=== PATIENT | female | born 1950 | race Caucasian/White ===

== ENCOUNTER → 2016-07-12 | Outpatient (CLI) | payer OTHER, MEDICARE ==
--- NOTE | 2016-07-12 10:53 | ECHOF ---
Referral Reason:R07.89 chest pain MEASUREMENTS -------- HEIGHT: 182.9 cm WEIGHT: 122.5 kg BP: 153/73 RVIDd: 3.6 cm (< 3.3) IVSd: 1.2 cm (0.6 - 1.1) LVIDd: 5.4 cm (3.9 - 5.3) LVPWd: 1.2 cm (0.6 - 1.1) IVSs: 1.9 cm LVIDs: 3.6 cm LVPWs: 1.6 cm LA Diam: 3.7 cm (2.7 - 3.8) LAESV Index (A-L): 32.53 ml/m Ao Diam: 3.8 cm (2.0 - 3.7) AV Cusp: 2.5 cm (1.5 - 2.6) MV EXCURSION: 20.477 mm (> 18.000) MV EF SLOPE: 80 mm/s (70 - 150) EPSS: 1.2 cm MV E Fred: 0.94 m/s MV DecT: 254 ms MV A Fred: 0.82 m/s MV E/A Ratio: 1.15 RAP: 5.00 mmHg RVSP: 30.55 mmHg FINDINGS -------- Sinus rhythm. This was a technically good study. The left ventricular size is normal. There is borderline concentric left ventricular hypertrophy. Overall left ventricular systolic function is normal with, an EF between 55 - 60 %. The right ventricle is mildly enlarged. LA is midly dilated 29-33ml/m2. The right atrium is normal in size. Aortic valve is trileaflet and is mildly thickened. Mild mitral annular calcification present. There is trace mitral regurgitation. Trace tricuspid regurgitation present. Right ventricular systolic pressure is normal at < 35 mmHg. Trace/mild (physiologic) pulmonic regurgitation. The aortic root is dilated measuring 3.8cm. The inferior vena cava is mildly dilated. There is no pericardial effusion. CONCLUSIONS -------- 1. Sinus rhythm. 2. Trace tricuspid regurgitation present. 3. Right ventricular systolic pressure is normal at < 35 mmHg. 4. Trace/mild (physiologic) pulmonic regurgitation. 5. The aortic root is dilated measuring 3.8cm. 6. The inferior vena cava is mildly dilated. 7. There is no pericardial effusion. 8. This was a technically good study. 9. There is borderline concentric left ventricular hypertrophy. 10. Overall left ventricular systolic function is normal with, an EF between 55 - 60 %. 11. The right ventricle is mildly enlarged. 12. LA is midly dilated 29-33ml/m2. 13. Aortic valve is trileaflet and is mildly thickened. 14. Mild mitral annular calcification present. 15. There is trace mitral regurgitation. SWATCH CHECKER: Fanny Ulloa RDCS
--- NOTE | 2016-07-12 14:22 | EST ---
DATE OF SERVICE: 07/12/16. AGE: 66Y SEX: F HT: WT: 270 lbs. Protocol Praneeth: X Other: Stage: Dur. of Exercise: 6:25 *Heart Rate Blood Pressure *Rest: 64 Rest: 166/100 * *Max. Achieved: 136 Maximum BP: 256/70 85% PMHR: 131 100% PMHR: 154 *METS: INDICATIONS: Chest pain. MEDICATIONS: Baseline rhythm is sinus mechanism, rate of 64, normal axis and intervals, minor nonspecific ST-T wave changes. Baseline blood pressure 166/100 mmHg. The patient exercised on Praneeth protocol for 6 minutes 25 seconds reaching peak rate of 136 beats per minute which is equal to 88% maximum predicted heart rate; peak blood pressure 148/52 mmHg. The test was terminated secondary to fatigue. There was no chest pain. Electrocardiograph monitoring revealed occasional PVCs. There was no evidence of diagnostic ischemic ST deviation. CONCLUSION: 1. Average exercise tolerance with no chest discomfort. 2. Normal electrocardiograph response to exercise was normal with occasional PVCs.
== END | disposition home or self-care (01) ==
LOC: RADECHMAIN 08:05
PROVIDERS: ATTEND Family Medicine
DX: R07.89 Other chest pain (principal)
CPT/HCPCS: 93017; 93306

== ENCOUNTER → 2016-10-14 | Outpatient (CLI) | payer OTHER, MEDICARE ==
--- NOTE | 2016-10-14 17:14 | XR ---
EXAMINATION TYPE: XR Hip Bilateral Complete DATE OF EXAM: 10/14/2016 COMPARISON: NONE HISTORY: Bilateral hip pain TECHNIQUE: 4 views FINDINGS: AP and frog leg views of both hips show no fracture nor dislocation. There is a 2 cm bony d ensity at the posterior right acetabulum consistent with degenerative phenomenon. Proximal femurs are intact. IMPRESSION: Large accessory ossicle or osteophyte on the right acetabulum is unchanged compared to ol d exam of 02/12/2014. No fracture.
--- NOTE | 2016-10-14 17:18 | XR ---
EXAMINATION TYPE: XR knee complete bilateral DATE OF EXAM: 10/14/2016 COMPARISON: NONE HISTORY: Pain TECHNIQUE: 6 views FINDINGS: There is hypertrophic spurring of the medial femoral and tibial condyles. There is bilatera l spurring on the patella. There is narrowing of left patellofemoral joint space. There is no sign of knee joint effusion. I see no fracture. IMPRESSION: Hypertrophic osteoarthritis. No fracture seen.
== END ==
LOC: RADXRMAIN 16:45
PROVIDERS: ATTEND Family Medicine
DX: M17.0 Bilateral primary osteoarthritis of knee (principal); M25.551 Pain in right hip; M25.552 Pain in left hip
CPT/HCPCS: 73521

== ENCOUNTER 2019-08-06 21:07 | Emergency (ER) | payer MEDICARE, OTHER ==
[2019-08-06 21:51] LABS: Basophils % (A) 0 %; Eosinophils # (A) 0.2 k/uL (0-0.7); Eosinophils % (A) 3 %; HCT 38.7 % (34.0-46.0); HGB 12.9 gm/dL (11.4-16.0); Lymphocytes # (A) 1.1 k/uL (1.0-4.8); Lymphocytes % (A) 19 %; MCH 27.2 pg (25.0-35.0); MCHC 33.3 g/dL (31.0-37.0); MCV 81.8 fL (80.0-100.0); Mean Platelet Volume 7.2; Monocytes # (A) 0.4 k/uL (0-1.0); Monocytes % (A) 6 %; Neutrophils % (A) 71 %; Platelet Count 337 k/uL (150-450); RBC 4.73 m/uL (3.80-5.40); RDW 14.2 % (11.5-15.5); WBC 5.7 k/uL (3.8-10.6)
--- NOTE | 2019-08-06 21:57 | ED ---
General Adult HPI - General Chief complaint: Extremity Injury, Lower Stated complaint: R Leg Injury Time Seen by Provider: 08/06/19 21:17 Source: patient, RN notes reviewed, old records reviewed Mode of arrival: ambulatory Limitations: no limitations - History of Present Illness Initial comments: 69-year-old female patient presents to ED for evaluation of bruising on right lower extremity. Patient reports that on she had a fall where she landed on her knee. Patient was did not have any significant pain is able to without difficulty however she has developed significant bruising on her knee and anterior tibia-fibula region. Denies any use of anticoagulants. Denies any blood disorders or significant use of anti-inflammatories. Systemic: Pt denies fatigue, fever/chills, rash. Pt denies weakness, night sweats, weight loss. Neuro: Pt denies headache, visual disturbances, syncope or pre-syncope. HEENT: Pt denies ocular discharge or irritation, otalgia, rhinorrhea, pharyngitis or notable lymphadenopathy. Cardiopulmonary: Pt denies chest pain, SOB, heart palpitations, dyspnea on exertion. Abdominal/GI: Pt denies abdominal pain, n/v/d. : Pt denies dysuria, burning w/ urination, frequency/urgency. Denies new onset urinary or bowel incontinence. MSK: Pt denies myalgia, loss of strength or function in extremities. Neuro: Pt denies new onset weakness, paresthesias. - Related Data Home Medications Medication Instructions Recorded Confirmed Cyanocobalamin [Vitamin B-12] 2,500 mcg PO DAILY@1200 01/19/15 01/19/15 FLUoxetine HCL 40 mg PO DAILY 01/19/15 01/19/15 LORazepam [Ativan] 0.5 mg PO DAILY 01/19/15 01/19/15 Levothyroxine Sodium [Synthroid] 112 mcg PO DAILY 01/19/15 01/19/15 amLODIPine BESYLATE/BENAZEPRIL 1 each PO DAILY 01/19/15 01/19/15 [Amlodipine-Benazepril 5-20 mg] Allergies Allergy/AdvReac Type Severity Reaction Status Date / Time sulfamethoxazole Allergy Rash/Hives Verified 08/06/19 21:15 [From Bactrim] trimethoprim [From Bactrim] Allergy Rash/Hives Verified 08/06/19 21:15 Review of Systems ROS Statement: Those systems with pertinent positive or pertinent negative responses have been documented in the HPI. ROS Other: All systems not noted in ROS Statement are negative. Past Medical History Past Medical History: Hypertension, Osteoarthritis (OA), Thyroid Disorder History of Any Multi-Drug Resistant Organisms: None Reported Past Surgical History: Bariatric Surgery, Cholecystectomy, Hernia Repair Additional Past Surgical History / Comment(s): kidney stone removal Past Psychological History: No Psychological Hx Reported Smoking Status: Former smoker Past Alcohol Use History: None Reported Past Drug Use History: None Reported General Exam - General Exam Comments Initial Comments: Constitutional: NAD, AOX3, Pt has pleasant affect. HEENT: NC/AT, trachea midline, neck supple, no lymphadenopathy. Posterior pharynx non erythematous, without exudates. External ears appear normal, without discharge. Mucous membranes moist. Eyes PERRLA, EOM intact. There is no scleral icterus. No pallor noted. Cardiopulmonary: RRR, no murmurs, rubs or gallops, no JVD noted. Lungs CTAB in anterior and posterior lopez. No peripheral edema. Abdominal exam: Abdomen soft and non-distended. Abdomen non-tender to palpation in all 4 quadrants. Bowel sounds active in LLQ. No hepatosplenomegaly. No ecchymosis Neuro: CN II-XII grossly intact. No nuchal rigidity. No raccon eyes, no rider sign, no hemotympanum. No cervical spinal tenderness. MSK: Ecchymoses are noted on the anterior aspect of right tibia-fibula, medial aspect of right knee, mild amount proximal to the knee. These do appear to be in the process of reabsorbing. Area is nontender, full active range of motion ambulatory without difficulty. No posterior calf tenderness bilaterally, homans sign negative bilaterally. Posterior tibialis and radial pulse +2 bilaterally. Sensation intact in upper and lower extremities. Full active ROM in upper and lower extremities, 5/5 stregnth. Limitations: no limitations Course Vital Signs 08/06/19 21:09 Temperature 97.9 F Pulse Rate 80 Respiratory 20 Rate Blood Pressure 152/82 O2 Sat by Pulse 99 Oximetry Medical Decision Making - Medical Decision Making 69-year-old female patient presents to ED for evaluation of bruising on right lower extremity. Patient reports that on she had a fall where she landed on her knee. Patient was did not have any significant pain is able to without difficulty however she has developed significant bruising on her knee and anterior tibia-fibula region. Denies any use of anticoagulants. Denies any blood disorders or significant use of anti-inflammatories. Patient vital signs are stable, afebrile. Physical exam displayed ecchymoses noted in anterior a spect of right knee, right anterior tibia/fibular region. Mild amount proximal to the knee as well. All anterior. Patient has full active range of motion lower extremities nontender to palpation. Neurovascularly intact. Able to without difficulty. Laboratory investigations were obtained, hemoglobin and platelets are within acceptable limits. No abnormality is noted in coagulation studies or chemistry panel. Plain films were obtained which did display some mild subcutaneous edema and tibia/fibular region however no acute osseous processes noted. Patient denies any other areas of bleeding denies any rectal bleeding, the bleeding of gums. Patient experiencing contusion and bruising wi ll be discharged to follow up with primary care provider within the ER physician worsens. Case discussed with Dr. Raya. - Lab Data Result diagrams: 08/06/19 21:42 08/06/19 21:42 Lab Results 08/06/19 08/06/19 08/06/19 Range/Units 21:42 21:42 21:42 WBC 5.7 (3.8-10.6) k/uL RBC 4.73 (3.80-5.40) m/uL Hgb 12.9 (11.4-16.0) gm/dL Hct 38.7 (34.0-46.0) % MCV 81.8 (80.0-100.0) fL MCH 27.2 (25.0-35.0) pg MCHC 33.3 (31.0-37.0) g/dL RDW 14.2 (11.5-15.5) % Plt Count 337 (150-450) k/uL Neutrophils % 71 % Lymphocytes % 19 % Monocytes % 6 % Eosinophils % 3 % Basophils % 0 % Neutrophils # 4.0 (1.3-7.7) k/uL Lymphocytes # 1.1 (1.0-4.8) k/uL Monocytes # 0.4 (0-1.0) k/uL Eosinophils # 0.2 (0-0.7) k/uL Basophils # 0.0 (0-0.2) k/uL PT 9.4 (9.0-12.0) sec INR 0.9 (<1.2) APTT 23.0 (22.0-30.0) sec Sodium 139 (137-145) mmol/L Potassium 4.6 (3.5-5.1) mmol/L Chloride 109 H (98-107) mmol/L Carbon Dioxide 25 (22-30) mmol/L Anion Gap 5 mmol/L BUN 20 H (7-17) mg/dL Creatinine 0.85 (0.52-1.04) mg/dL Est GFR (CKD-EPI)AfAm 81 (>60 ml/min/1.73 sqM) Est GFR (CKD-EPI)NonAf 70 (>60 ml/min/1.73 sqM) Glucose 101 H (74-99) mg/dL Calcium 9.4 (8.4-10.2) mg/dL Disposition Clinical Impression: Contusion, Bruise Disposition: HOME SELF-CARE Condition: Stable Instructions (If sedation given, give patient instructions): Hematoma (ED) Additional Instructions: Follow-up with primary care provider tomorrow. Return to ER if condition worsens in any way. Is patient prescribed a controlled substance at d/c from ED?: No Referrals: Neftaly Salinas DO [Primary Care Provider] - 1-2 days
[2019-08-06 21:59] LABS: Calcium 9.4 mg/dL (8.4-10.2); INR 0.9 (<1.2); Potassium 4.6 mmol/L (3.5-5.1); Prothrombin Time 9.4 sec (9.0-12.0)
--- NOTE | 2019-08-06 22:21 | XR ---
EXAMINATION TYPE: XR tibia fibula RT DATE OF EXAM: 08/06/2019 COMPARISON: NONE HISTORY: Leg pain after falling TECHNIQUE: 4 views FINDINGS: I see no fracture nor dislocation. Tibia and fibula appear intact. There is some narrowing of the patellofemoral joint space with spurring. Ankle mortise is anatomic. There is plantar calcanea l spurring. IMPRESSION: No acute abnormality of the tibia and fibula. Mild subcutaneous edema around the lower le g.
--- NOTE | 2019-08-06 22:22 | XR ---
EXAMINATION TYPE: XR knee 4V RT DATE OF EXAM: 08/06/2019 COMPARISON: NONE HISTORY: Knee pain TECHNIQUE: 4 views FINDINGS: There is no sign of fracture nor dislocation. There is no sign of joint effusion. There is narrowing of patellofemoral joint space with spurring of the superior patella. IMPRESSION: No fracture. There is some osteoarthritis of the patellofemoral joint.
--- NOTE | 2019-08-06 22:23 | XR ---
EXAMINATION TYPE: XR femur RT DATE OF EXAM: 08/06/2019 COMPARISON: NONE HISTORY: Pain TECHNIQUE: 4 views FINDINGS: I see no fracture nor dislocation. Knee joint and hip joint appear intact. There is slight narrowing of the knee joint spaces. IMPRESSION: No acute abnormality of the right femur.
[2019-08-06 22:46] VITALS: BP 142/75; PULSE 71; RESP 16; TEMP 98.3
== END 2019-08-06 22:47 | disposition home or self-care (01) ==
LOC: EC 21:07
DX: S80.11XA Contusion of right lower leg, initial encounter (principal); I10 Essential (primary) hypertension; E07.9 Disorder of thyroid, unspecified; Z79.890 Hormone replacement therapy; Z79.899 Other long term (current) drug therapy; Z88.1 Allergy status to other antibiotic agents; Z88.2 Allergy status to sulfonamides; Z87.891 Personal history of nicotine dependence; Z98.84 Bariatric surgery status; W19.XXXA Unspecified fall, initial encounter
CPT/HCPCS: 36415; 80048; 85025; 85610; 85730; 99284

== ENCOUNTER → 2021-06-18 | Outpatient (CLI) | payer MEDICARE, OTHER ==
--- NOTE | 2021-06-18 12:50 | US ---
EXAMINATION TYPE: US carotid duplex BILAT DATE OF EXAM: 06/18/2021 COMPARISON: US 2014 CLINICAL HISTORY: I48.91 atrial fibrillation. EXAM MEASUREMENTS: RIGHT: Peak Systolic Velocity (PSV) cm/sec ----- Right CCA: 50.3 ----- Right ICA: 72.1 ----- Right ECA: 81.7 ICA/CCA ratio: 1.4 RIGHT: End Diastole cm/sec ----- Right CCA: 14.0 ----- Right ICA: 29.3 ----- Right ECA: 16.2 LEFT: Peak Systolic Velocity (PSV) cm/sec ----- Left CCA: 44.1 ----- Left ICA: 67.5 ----- Left ECA: 62.9 ICA/CCA ratio: 1.5 LEFT: End Diastole cm/sec ----- Left CCA: 17.1 ----- Left ICA: 27.3 ----- Left ECA: 11.1 VERTEBRALS (direction of flow): Right Vertebral: Antegrade Left Vertebral: Antegrade Rhythm: Arrhythmia No significant stenosis IMPRESSION: No evidence for hemodynamically significant stenosis. Criteria for Assigning % of Stenosis / Diameter reduction (Estimation based on the indirect measurements of the internal carotid artery velocities (ICA PSV). 1. Normal (no stenosis)=ICA PSV < 125 cm/s: ratio < 2.0: ICA EDV<40 cm/s. 2. Less than 50% stenosis=ICA PSV < 125 cm/s: ratio < 2.0: ICA EDV<40 cm/s. 3. 50 to 69% stenosis=ICA PSV of 125 to 230 cm/s: ration 2.0 ? 4.0: ICA EDV 40-100 cm/s. 4. Greater than 70% stenosis to near occlusion= ICA PSV > 230 cm/s: ratio > 4.0: ICA EDV > 100 cm/s. 5. Near occlusion= ICA PSV velocities may be low or undetectable: variable ratio and ICA EDV. 6. Total occlusion=unable to detect flow.
== END | disposition home or self-care (01) ==
LOC: RADUSWWP 12:25
PROVIDERS: ATTEND Family Medicine
DX: I48.91 Unspecified atrial fibrillation (principal)
CPT/HCPCS: 93880

== ENCOUNTER → 2021-09-06 | Outpatient (CLI) | payer MEDICARE, OTHER ==
--- NOTE | 2021-09-06 13:18 | MR ---
EXAMINATION TYPE: MR knee LT wo con DATE OF EXAM: 09/06/2021 COMPARISON: None. HISTORY: UNSPECIFIED INTERNAL DERANGEMENT OF LEFT KNEE, PAIN and swelling X 1 YEAR TECHNIQUE: Multiplanar, multisequence imaging of the left knee is performed without IV contrast. FINDINGS: MEDIAL MENISCUS: Subtle increased globular signal posterior horn appears to extend to the inferior ar ticular surface. LATERAL MENISCUS: Some faint increased signal central body extends towards the posterior horn and sag ittal measures 7 without definitive extension to articular surface. CRUCIATE LIGAMENTS: The anterior and posterior cruciate ligaments are intact. There is increased vert ical signal in the ACL sagittal image 17 correlating with coronal image 20. COLLATERAL LIGAMENTS: The medial collateral ligament and lateral collateral ligament complex are inta ct and unremarkable. EXTENSOR MECHANISM: Visualized quadriceps and patellar tendons are intact. EFFUSION: Small to tiny suprapatellar joint effusion. POPLITEAL CYST: No popliteal/guerrero cyst. TRICOMPARTMENT SPACES: Moderate to severe narrowing patellofemoral compartment with mild spurring. Mi [id number] narrowing medial lateral tibiofemoral compartments with moderate spurring. CARTILAGE: Significant Chondromalacia patella with full-thickness cartilaginous loss along the technical program manager ior patellar pole BONE MARROW SIGNAL: Heterogeneous diminished T1 and increased T2 signal along the posterior patellar pole fairly diffusely. Heterogeneous diminished T1 and increased T2 signal involving the anterior asp ect of the distal lateral femoral condyle. OTHER: No additional significant abnormality is appreciated. IMPRESSION: 1. Tricompartment degenerative changes as detailed above. Advanced findings noted patellofemoral comp artment as detailed above. 2. Suspect intrasubstance tear central body into the posterior horn of the lateral meniscus. 3. At least intrasubstance tear suspected full-thickness tear posterior horn medial meniscus. 4. Partial tearing/sprain injury of the distal anterior cruciate ligament.
== END | disposition home or self-care (01) ==
LOC: RADMRIMAIN 12:32
PROVIDERS: ATTEND Family Medicine
DX: M17.12 Unilateral primary osteoarthritis, left knee (principal); S83.242A Other tear of medial meniscus, current injury, left knee, initial encounter

== ENCOUNTER 2021-11-10 01:58 | Emergency (ER) | payer MEDICARE, OTHER ==
[2021-11-10 02:11] VITALS: RESP 16; TEMP 97.5
[2021-11-10] MEDS ORDERED: SODIUM CHLORIDE 0.9% 1,000 ML IV STA (02:31)
[2021-11-10] MEDS ORDERED: KETOROLAC 15 MG/ML 1 ML VIAL IVP STA (02:31)
[2021-11-10] MEDS ORDERED: HYDROmorphone 1 MG/ML 1 ML SYRINGE IVP STA (02:31)
[2021-11-10] MEDS ORDERED: ONDANSETRON 4 MG/2 ML VIAL IVP STA (02:31)
--- NOTE | 2021-11-10 02:32 | ED ---
Abdominal Pain HPI - General Chief Complaint: Abdominal Pain Stated Complaint: rt side pain Time Seen by Provider: 11/10/21 02:15 Source: patient, family, RN notes reviewed, old records reviewed Mode of arrival: wheelchair Limitations: no limitations - History of Present Illness Initial Comments: This is a 71-year-old female to the emergency department for evaluation. Patient presents today for evaluation regards to abdominal pain right-sided flank pain severe flank pain rating to groin and back. Mild nausea no vomiting no fevers. No history of kidney stones the pain is severe. Positive nausea no vomiting no fevers MD Complaint: flank pain (Right-sided) -: hour(s) Location: RLQ, R flank Radiation: suprapubic Migration to: suprapubic Severity: severe Severity scale (1-10): 9 Quality: stabbing, sharp Consistency: constant Improves With: nothing Worsens With: nothing Associated Symptoms: nausea Treatments Prior to Arrival: NSAIDs - Related Data Home Medications Medication Instructions Recorded Confirmed Cyanocobalamin [Vitamin B-12] 2,500 mcg PO DAILY@1200 01/19/15 01/19/15 FLUoxetine HCL 40 mg PO DAILY 01/19/15 01/19/15 LORazepam [Ativan] 0.5 mg PO DAILY 01/19/15 01/19/15 Levothyroxine Sodium [Synthroid] 112 mcg PO DAILY 01/19/15 01/19/15 amLODIPine BESYLATE/BENAZEPRIL 1 each PO DAILY 01/19/15 01/19/15 [Amlodipine-Benazepril 5-20 mg] Allergies Allergy/AdvReac Type Severity Reaction Status Date / Time sulfamethoxazole Allergy Rash/Hives Verified 11/10/21 02:11 [From Bactrim] trimethoprim [From Bactrim] Allergy Rash/Hives Verified 11/10/21 02:11 Review of Systems ROS Statement: Those systems with pertinent positive or pertinent negative responses have been documented in the HPI. ROS Other: All systems not noted in ROS Statement are negative. Past Medical History Past Medical History: Hypertension, Osteoarthritis (OA), Thyroid Disorder History of Any Multi-Drug Resistant Organisms: None Reported Past Surgical History: Bariatric Surgery, Cholecystectomy, Hernia Repair Additional Past Surgical History / Comment(s): kidney stone removal Past Psychological History: No Psychological Hx Reported Smoking Status: Never smoker Past Alcohol Use History: None Reported Past Drug Use History: None Reported General Exam Limitations: no limitations General appearance: alert, in no apparent distress, anxious Head exam: Present: atraumatic, normocephalic, normal inspection Eye exam: Present: normal appearance, PERRL, EOMI. Absent: scleral icterus, conjunctival injection, periorbital swelling ENT exam: Present: normal exam, mucous membranes dry, mucous membranes moist Neck exam: Present: normal inspection. Absent: tenderness, meningismus, lymphadenopathy Respiratory exam: Present: normal lung sounds bilaterally. Absent: respiratory distress, wheezes, rales, rhonchi, stridor Cardiovascular Exam: Present: regular rate, normal rhythm, normal heart sounds. Absent: systolic murmur, diastolic murmur, rubs, gallop, clicks GI/Abdominal exam: Present: soft, normal bowel sounds. Absent: distended, tenderness, guarding, rebound, rigid Extremities exam: Present: normal inspection, full ROM, normal capillary refill. Absent: tenderness, pedal edema, joint swelling, calf tenderness Back exam: Present: normal inspection Neurological exam: Present: alert, oriented X3, CN II-XII intact Psychiatric exam: Present: normal affect, normal mood Skin exam: Present: warm, dry, intact, normal color. Absent: rash Course Vital Signs 11/10/21 11/10/21 02:08 04:09 Temperature 97.5 F L Pulse Rate 51 L 60 Respiratory 16 16 Rate Blood Pressure 160/73 160/87 O2 Sat by Pulse 98 Oximetry - Reevaluation(s) Reevaluation #1: 11/10/21 Medical record is reviewed Reevaluation #2: 11/10/21 Patient symptoms are improved Reevaluation #3: 11/10/21 Patient informed results and questions answered Medical Decision Making - Medical Decision Making 71 female fall with right ureteral stone. Patient has pain control adequate currently. Patient can be discharged home - Lab Data Result diagrams: 11/10/21 03:21 11/10/21 02:31 Lab Results 11/10/21 11/10/21 11/10/21 Range/Units 02:31 02:31 02:31 WBC (3.8-10.6) k/uL RBC (3.80-5.40) m/uL Hgb (11.4-16.0) gm/dL Hct (34.0-46.0) % MCV (80.0-100.0) fL MCH (25.0-35.0) pg MCHC (31.0-37.0) g/dL RDW (11.5-15.5) % Plt Count (150-450) k/uL MPV Neutrophils % % Lymphocytes % % Monocytes % % Eosinophils % % Basophils % % Neutrophils # (1.3-7.7) k/uL Lymphocytes # (1.0-4.8) k/uL Monocytes # (0-1.0) k/uL Eosinophils # (0-0.7) k/uL Basophils # (0-0.2) k/uL Hypochromasia Sodium 140 (137-145) mmol/L Potassium 4.2 (3.5-5.1) mmol/L Chloride 109 H (98-107) mmol/L Carbon Dioxide 22 (22-30) mmol/L Anion Gap 9 mmol/L BUN 17 (7-17) mg/dL Creatinine 1.08 H (0.52-1.04) mg/dL Est GFR (CKD-EPI)AfAm 60 (>60 ml/min/1.73 sqM) Est GFR (CKD-EPI)NonAf 52 (>60 ml/min/1.73 sqM) Glucose 117 H (74-99) mg/dL Plasma Lactic Acid Peyman 0.9 (0.7-2.0) mmol/L Calcium 9.4 (8.4-10.2) mg/dL Total Bilirubin 0.4 (0.2-1.3) mg/dL AST 31 (14-36) U/L ALT 15 (4-34) U/L Alkaline Phosphatase 123 (38-126) U/L Troponin I (0.000-0.034) ng/mL Total Protein 6.7 (6.3-8.2) g/dL Albumin 4.3 (3.5-5.0) g/dL Amylase 59 (30-110) U/L Lipase 106 (23-300) U/L Urine Color Yellow Urine Appearance Cloudy H (Clear) Urine pH 5.5 (5.0-8.0) Ur Specific [place] 1.016 (1.001-1.035) Urine Protein Negative (Negative) Urine Glucose (UA) Negative (Negative) Urine Ketones Negative (Negative) Urine Blood Large H (Negative) Urine Nitrite Negative (Negative) Urine Bilirubin Negative (Negative) Urine Urobilinogen <2.0 (<2.0) mg/dL Ur Leukocyte Esterase Negative (Negative) Urine RBC 113 H (0-5) /hpf Urine WBC <1 (0-5) /hpf Ur Squamous Epith Cells 1 (0-4) /hpf Calcium Oxalate Crystal Moderate H (None) /hpf Urine Bacteria Rare H (None) /hpf Urine Yeast (Budding) Occasional H (None) /hpf 11/10/21 11/10/21 Range/Units 02:31 03:21 WBC 5.5 (3.8-10.6) k/uL RBC 4.41 (3.80-5.40) m/uL Hgb 12.3 (11.4-16.0) gm/dL Hct 37.9 (34.0-46.0) % MCV 86.0 (80.0-100.0) fL MCH 27.9 (25.0-35.0) pg MCHC 32.4 (31.0-37.0) g/dL RDW 15.5 (11.5-15.5) % Plt Count 229 (150-450) k/uL MPV 7.5 Neutrophils % 80 % Lymphocytes % 12 % Monocytes % 4 % Eosinophils % 2 % Basophils % 0 % Neutrophils # 4.4 (1.3-7.7) k/uL Lymphocytes # 0.7 L (1.0-4.8) k/uL Monocytes # 0.2 (0-1.0) k/uL Eosinophils # 0.1 (0-0.7) k/uL Basophils # 0.0 (0-0.2) k/uL Hypochromasia Slight Sodium (137-145) mmol/L Potassium (3.5-5.1) mmol/L Chloride (98-107) mmol/L Carbon Dioxide (22-30) mmol/L Anion Gap mmol/L BUN (7-17) mg/dL Creatinine (0.52-1.04) mg/dL Est GFR (CKD-EPI)AfAm (>60 ml/min/1.73 sqM) Est GFR (CKD-EPI)NonAf (>60 ml/min/1.73 sqM) Glucose (74-99) mg/dL Plasma Lactic Acid Peyman (0.7-2.0) mmol/L Calcium (8.4-10.2) mg/dL Total Bilirubin (0.2-1.3) mg/dL AST (14-36) U/L ALT (4-34) U/L Alkaline Phosphatase (38-126) U/L Troponin I <0.012 (0.000-0.034) ng/mL Total Protein (6.3-8.2) g/dL Albumin (3.5-5.0) g/dL Amylase (30-110) U/L Lipase (23-300) U/L Urine Color Urine Appearance (Clear) Urine pH (5.0-8.0) Ur Specific [place] (1.001-1.035) Urine Protein (Negative) Urine Glucose (UA) (Negative) Urine Ketones (Negative) Urine Blood (Negative) Urine Nitrite (Negative) Urine Bilirubin (Negative) Urine Urobilinogen (<2.0) mg/dL Ur Leukocyte Esterase (Negative) Urine RBC (0-5) /hpf Urine WBC (0-5) /hpf Ur Squamous Epith Cells (0-4) /hpf Calcium Oxalate Crystal (None) /hpf Urine Bacteria (None) /hpf Urine Yeast (Budding) (None) /hpf - Radiology Data Radiology results: report reviewed (CT head and pelvis is positive for kidney stone), image reviewed Disposition Clinical Impression: Abdominal pain, Calculus of kidney, Right ureteral stone Disposition: HOME SELF-CARE Condition: Good Instructions (If sedation given, give patient instructions): Kidney Stones (ED) Is patient prescribed a controlled substance at d/c from ED?: No Referrals: Neftaly Salinas DO [Primary Care Provider] - 1-2 days Jossue Escobar MD [STAFF PHYSICIAN] - 1-2 days Time of Disposition: 03:45
[2021-11-10 03:23] LABS: Appearance,Urine Cloudy (Clear); Bacteria,Urine Rare /hpf; Bilirubin,Urine Negative (Negative); Blood,Urine Large (Negative); Budding Yeast,Urine Occasional /hpf; Calcium Oxalate Crystals,Urine Moderate /hpf; Color,Urine Yellow; Glucose,Urine (UA) Negative (Negative); Ketones,Urine Negative (Negative); Leukocyte Esterase,Urine Negative (Negative); Nitrite,Urine Negative (Negative); PH, Urine 5.5 (5.0-8.0); Protein,Urine Negative (Negative); RBC,Urine 113 /hpf (0-5); Specific Gravity,Urine 1.016 (1.001-1.035); Squamous Epithelial Cell,Urine 1 /hpf (0-4); Urobilinogen,Urine <2.0 mg/dL (<2.0); WBC,Urine <1 /hpf (0-5)
--- NOTE | 2021-11-10 03:34 | CT ---
EXAMINATION TYPE: CT abdomen pelvis wo con DATE OF EXAM: 11/10/2021 COMPARISON: 01/14/2014 HISTORY: PAIN CT DLP: 1649.8 mGycm Automated exposure control for dose reduction was used. Images obtained from the diaphragm to the floor the pelvis with no contrast. There is subsegmental atelectasis at the lung bases. Heart size is normal. No pericardial effusion. N o pleural effusion. Liver spleen pancreas appear intact. There is previous gastric bariatric surgery. There are clips fro m cholecystectomy. The bile ducts are not dilated. There is no adrenal mass. Kidneys have normal size. There is right-si ded hydronephrosis and hydroureter. There is a 6 mm obstructing calculus in the proximal right ureter . No retroperitoneal adenopathy. There is also evidence of a 4 mm calculus in the distal right ureter at the ureterovesical junction. Bladder is almost empty. No inguinal hernia. No free fluid in the pe lvis. There are bilateral renal calculi. Largest cyst in the lower pole of the left kidney measuring 6 mm. There is mild left-sided hydronephrosis. I do not see a definite ureteral calculus. There is calcific ation adjacent to the proximal left ureter that is thought to be a phlebolith. Left ureter not dilate d. There is no mesenteric edema. No ascites or free air. No bowel obstruction. Appendix is posterior and appears normal. There are some small bowel loops with mild wall thickening in the mid abdomen. There is surgical clips from anterior abdominal wall hernia surgery. The lumbar vertebrae appear intact. No compression fracture. Bony pelvis is intact. The hip joints ar e intact. IMPRESSION: Obstructing calculi in the proximal and distal right ureter. Right-sided hydronephrosis. There is min imal left-sided hydronephrosis without a definite obstructing calculus. There are bilateral several r enal calculi. Mild wall thickening of the mid small bowel could relate to some gastroenteritis. Normal appendix. Right renal obstruction is new compared to old exam. Small bowel abnormality is new compared to old e xam. There is hernia surgery compared to old exam.
[2021-11-10] MEDS ORDERED: TAMSULOSIN 0.4 MG CAP.ER.24H PO STA (03:41)
[2021-11-10] MEDS ORDERED: IBUPROFEN 600 MG STARTER PACK 4 TAB BTL PO STA (03:41)
[2021-11-10] MEDS ORDERED: traMADol 50 MG STARTER PACK 3 TAB BTL PO STA (03:41)
[2021-11-10] MEDS ORDERED: ONDANSETRON 4 MG ODT STARTER PACK 2 TAB BTL PO STA (03:41)
[2021-11-10] MEDS ORDERED: ACET/COD 300 MG/30 MG STARTER PACK 6 TAB BTL PO STA (03:41)
[2021-11-10 03:46] LABS: Albumin 4.3 g/dL (3.5-5.0); Calcium 9.4 mg/dL (8.4-10.2); Potassium 4.2 mmol/L (3.5-5.1); Total Bilirubin 0.4 mg/dL (0.2-1.3); Total Protein 6.7 g/dL (6.3-8.2)
[2021-11-10 04:10] VITALS: BP 160/87; PULSE 60
[2021-11-10 04:22] LABS: Basophils % (A) 0 %; Eosinophils # (A) 0.1 k/uL (0-0.7); Eosinophils % (A) 2 %; HCT 37.9 % (34.0-46.0); HGB 12.3 gm/dL (11.4-16.0); Hypochromasia Slight; Lymphocytes # (A) 0.7 k/uL (1.0-4.8); Lymphocytes % (A) 12 %; MCH 27.9 pg (25.0-35.0); MCHC 32.4 g/dL (31.0-37.0); Mean Platelet Volume 7.5; Monocytes # (A) 0.2 k/uL (0-1.0); Monocytes % (A) 4 %; Neutrophils # (A) 4.4 k/uL (1.3-7.7); Neutrophils % (A) 80 %; Platelet Count 229 k/uL (150-450); RBC 4.41 m/uL (3.80-5.40); RDW 15.5 % (11.5-15.5); WBC 5.5 k/uL (3.8-10.6)
== END 2021-11-10 04:23 | disposition home or self-care (01) ==
LOC: EC 01:58
DX: N13.2 Hydronephrosis with renal and ureteral calculous obstruction (principal); I10 Essential (primary) hypertension; E07.9 Disorder of thyroid, unspecified; Z88.0 Allergy status to penicillin; Z79.890 Hormone replacement therapy; Z79.899 Other long term (current) drug therapy
CPT/HCPCS: 36415; 80053; 82150; 83605; 83690; 84484; 85025; 81001; 74176; 99284; 96374; 96375; 96361; J2405; J1170; J1885; S0119

== ENCOUNTER → 2021-11-15 | Outpatient (CLI) | payer MEDICARE, OTHER ==
--- NOTE | 2021-11-15 16:01 | XR ---
KUB HISTORY: Kidney stones KUB submitted on 2 images and correlated prior CT 11/10/2021 Multiple surgical clips are present in the abdomen, there are multiple metallic coils. There is a spi nal curvature. Degenerative disc changes are present in the visualized spine. There is a probable phlebolith in the left hemipelvis. The calcifications seen at the level of the mi d right ureter on prior CT not seen with certainty. Right ureteral calcification present over the low er pole the left kidney measures approximately 7 to 8 mm. The punctate calcification near the lower p ole the right kidney and prior CT is not seen possibly due to overlying bowel gas. IMPRESSION: Previously identified right ureteral calculus not seen with certainty. There is nephrolit hiasis.
== END | disposition home or self-care (01) ==
LOC: RADXRMAIN 15:13
PROVIDERS: ATTEND Urology
DX: N20.2 Calculus of kidney with calculus of ureter (principal)
CPT/HCPCS: 74018

== ENCOUNTER → 2022-01-05 | Outpatient (CLI) | payer MEDICARE, OTHER ==
--- NOTE | 2022-01-05 13:34 | XR ---
EXAMINATION TYPE: XR KUB DATE OF EXAM: 01/05/2022 COMPARISON: 11/15/2021 HISTORY: Pain TECHNIQUE: One view abdominal series FINDINGS: Postsurgical change suggestive of hernia repair surgery. Arthropathy of the hips. Degenerative hypert rophic changes in the spine. Additional surgical clips in the epigastric region. Bowel content obscures the right renal outline. There is a calcific density again noted overlying the mid to lower pole left kidney measuring approximately 6 mm. Arthropathy of the SI joints bilaterally . IMPRESSION: 1. Stable left renal calculus
== END | disposition home or self-care (01) ==
LOC: RADXRMAIN 13:14
PROVIDERS: ATTEND Urology
DX: N20.0 Calculus of kidney (principal)
CPT/HCPCS: 74018

== ENCOUNTER 2022-04-26 09:58 | Emergency (ER) | payer OTHER, MEDICARE ==
--- NOTE | 2022-04-26 10:36 | ED ---
General Adult HPI - General Chief complaint: Arrhythmia/Palpitations Stated complaint: SOB, AFIB Time Seen by Provider: 04/26/22 10:17 Source: patient Mode of arrival: ambulatory Limitations: no limitations - History of Present Illness Initial comments: Dictation was produced using [employer] dictation software. please excuse any grammatical, word or spelling errors. Chief Complaint: 72-year-old female presents emergency department for A. fib History of Present Illness: Patient is 72-year-old female she has past medical history of H fibrillation. She states that she has the paroxysmal type. She was at her primary care doctor's for routine visit last week where she was told that she is back into atrial fibrillation. His tympanic coagulation medications. The last 2-3 days she's been having these of mild weakness. She has no chest pain or shortness of breath. The ROS documented in this emergency department record has been reviewed and confirmed by me. Those systems with pertinent positive or negative responses have been documented in the HPI. All other systems are other negative and/or noncontributory. PHYSICAL EXAM: General Impression: Alert and oriented x3, not in acute distress HEENT: Normocephalic atraumatic, extra-ocular movements intact, pupils equal and reactive to light bilaterally, mucous membranes moist. Cardiovascular: Irregular Chest: Able to complete full sentences, no retractions, no tachypnea Abdomen: abdomen soft, non-tender, non-distended, no organomegaly Musculoskeletal: Pulses present and equal in all extremities, no peripheral edema Motor: no focal deficits noted Neurological: CN II-XII grossly intact, no focal motor or sensory deficits noted Skin: Intact with no visualized rashes Psych: Normal affect and mood ED course: 72-year-old female presents to the emergency department for atrial fibrillation. Vital signs upon arrival are within acceptable limits. Patient's well-appearing at the bedside. She does appear to be in A. fib. Nursing notes and chart review was performed Laboratory evaluation obtained. CBC unremarkable. Metabolic panel is unremarkable. Abdominal labs negative. Chest x-ray is nonacute. Patient monitored in the emergency department for 2 hours and 50 minutes. Reevaluated at bedside at 12:15 PM found to be in stable medical condition. Patient's heart rates been controlled. She does not appear to be in any acute distress. Vital signs are stable. Patient be discharged and advised follow-up with email producer and primary care doctor. My EKG interpretation: Ventricular rate 78, A. fib, QRS 85, QTc 447. no QTC prolongation, no ST or T-wave changes noted. Overall, this EKG is unremarkable Was pt. sent in by a medical professional or institution? @ no Did you speak to anyone other than the patient for history? @ no Did you review nursing and triage notes? @Yes, agree Were old charts reviewed? @ no Differential Diagnosis? @MDM Differential Weakness: Hypoglycemia, shock, sepsis, hyponatremia, anemia, infection, NH, ETOH, adverse medicine reaction, overdose, stroke. ... This is not meant to be an all- inclusive list EKG interpreted by me (3pts min.)? @See above X-rays interpreted by me (1pt min.)? @See above CT interpreted by me (1pt min.)? @ none U/S interpreted by me (1pt. min.)? @ none What testing was considered but not performed? (CT, X-rays, U/S, labs)? Why? @Viral testing was considered however patient does not have any URI symptoms What meds were considered but not given? Why? @ none Did you discuss the management of the patient with other professionals? @ no Did you reconcile home meds? @ none Was smoking cessation discussed for >3mins.? @ none Was critical care preformed (if so, how long)? @ none Were there social determinants of health that impacted care today? How? (Homelessness, low income, unemployed, alcoholism, drug addiction, transpor tation, low edu. Level, literacy, decrease access to med. care, usp, rehab)? @ no Was there de-escalation of care discussed even if they declined? (Discuss DNR or withdrawal of care, Hospice)? @ na What co-morbidities impacted this encounter? (DM, HTN, Smoking, COPD, CAD, Cancer, CVA, Hep., AIDS, mental health diagnosis, sleep apnea, morbid obesity)? @ na Was patient admitted / discharged? @Discharged Undiagnosed new problem with uncertain prognosis? @ none Drug Therapy requiring intensive monitoring for toxicity (Heparin, Nitro, Insulin, Cardizem)? @ none Were any procedures done? @ none Diagnosis/symptom? @Mild malaise Acute, or Chronic, or Acute on Chronic? @Chronic Uncomplicated (without systemic symptoms) or Complicated (systemic symptoms)? @Uncomplicated Side effects of treatment? @ none Exacerbation, Progression, or Severe Exacerbation] @ no Poses a threat to life or bodily function? @ no - Related Data Home Medications Medication Instructions Recorded Confirmed Cyanocobalamin [Vitamin B-12] 2,500 mcg PO DAILY@1200 01/19/15 01/19/15 FLUoxetine HCL 40 mg PO DAILY 01/19/15 01/19/15 LORazepam [Ativan] 0.5 mg PO DAILY 01/19/15 01/19/15 Levothyroxine Sodium [Synthroid] 112 mcg PO DAILY 01/19/15 01/19/15 amLODIPine BESYLATE/BENAZEPRIL 1 each PO DAILY 01/19/15 01/19/15 [Amlodipine-Benazepril 5-20 mg] Allergies Allergy/AdvReac Type Severity Reaction Status Date / Time sulfamethoxazole Allergy Rash/Hives Verified 04/26/22 10:08 [From Bactrim] trimethoprim [From Bactrim] Allergy Rash/Hives Verified 04/26/22 10:08 Review of Systems ROS Statement: Those systems with pertinent positive or pertinent negative responses have been documented in the HPI. ROS Other: All systems not noted in ROS Statement are negative. Past Medical History Past Medical History: Hypertension, Osteoarthritis (OA), Thyroid Disorder History of Any Multi-Drug Resistant Organisms: None Reported Past Surgical History: Bariatric Surgery, Cholecystectomy, Hernia Repair Additional Past Surgical History / Comment(s): kidney stone removal Past Psychological History: No Psychological Hx Reported Smoking Status: Never smoker Past Alcohol Use History: None Reported Past Drug Use History: None Reported General Exam Limitations: no limitations Course Vital Signs 04/26/22 04/26/22 10:06 11:20 Temperature 98.4 F 97.9 F Pulse Rate 72 72 Respiratory 20 18 Rate Blood Pressure 167/112 154/102 O2 Sat by Pulse 97 99 Oximetry Medical Decision Making - Lab Data Result diagrams: 04/26/22 10:40 04/26/22 10:40 Lab Results 04/26/22 04/26/22 04/26/22 Range/Units 10:40 10:40 10:40 WBC 5.4 (3.8-10.6) k/uL RBC 5.10 (3.80-5.40) m/uL Hgb 14.0 (11.4-16.0) gm/dL Hct 43.2 (34.0-46.0) % MCV 84.8 (80.0-100.0) fL MCH 27.5 (25.0-35.0) pg MCHC 32.4 (31.0-37.0) g/dL RDW 14.2 (11.5-15.5) % Plt Count 302 (150-450) k/uL MPV 8.2 Neutrophils % 77 % Lymphocytes % 14 % Monocytes % 5 % Eosinophils % 2 % Basophils % 1 % Neutrophils # 4.2 (1.3-7.7) k/uL Lymphocytes # 0.8 L (1.0-4.8) k/uL Monocytes # 0.3 (0-1.0) k/uL Eosinophils # 0.1 (0-0.7) k/uL Basophils # 0.0 (0-0.2) k/uL Hypochromasia Slight Sodium 141 (137-145) mmol/L Potassium 4.6 (3.5-5.1) mmol/L Chloride 110 H (98-107) mmol/L Carbon Dioxide 23 (22-30) mmol/L Anion Gap 8 mmol/L BUN 14 (7-17) mg/dL Creatinine 0.98 (0.52-1.04) mg/dL Est GFR (CKD-EPI)AfAm 67 (>60 ml/min/1.73 sqM) Est GFR (CKD-EPI)NonAf 58 (>60 ml/min/1.73 sqM) Glucose 100 H (74-99) mg/dL Plasma Lactic Acid Peyman 1.4 (0.7-2.0) mmol/L Calcium 9.0 (8.4-10.2) mg/dL Magnesium 2.1 (1.6-2.3) mg/dL Total Bilirubin 0.9 (0.2-1.3) mg/dL AST 24 (14-36) U/L ALT 16 (4-34) U/L Alkaline Phosphatase 155 H (38-126) U/L Troponin I (0.000-0.034) ng/mL Total Protein 6.9 (6.3-8.2) g/dL Albumin 4.2 (3.5-5.0) g/dL 04/26/22 Range/Units 10:40 WBC (3.8-10.6) k/uL RBC (3.80-5.40) m/uL Hgb (11.4-16.0) gm/dL Hct (34.0-46.0) % MCV (80.0-100.0) fL MCH (25.0-35.0) pg MCHC (31.0-37.0) g/dL RDW (11.5-15.5) % Plt Count (150-450) k/uL MPV Neutrophils % % Lymphocytes % % Monocytes % % Eosinophils % % Basophils % % Neutrophils # (1.3-7.7) k/uL Lymphocytes # (1.0-4.8) k/uL Monocytes # (0-1.0) k/uL Eosinophils # (0-0.7) k/uL Basophils # (0-0.2) k/uL Hypochromasia Sodium (137-145) mmol/L Potassium (3.5-5.1) mmol/L Chloride (98-107) mmol/L Carbon Dioxide (22-30) mmol/L Anion Gap mmol/L BUN (7-17) mg/dL Creatinine (0.52-1.04) mg/dL Est GFR (CKD-EPI)AfAm (>60 ml/min/1.73 sqM) Est GFR (CKD-EPI)NonAf (>60 ml/min/1.73 sqM) Glucose (74-99) mg/dL Plasma Lactic Acid Peyman (0.7-2.0) mmol/L Calcium (8.4-10.2) mg/dL Magnesium (1.6-2.3) mg/dL Total Bilirubin (0.2-1.3) mg/dL AST (14-36) U/L ALT (4-34) U/L Alkaline Phosphatase (38-126) U/L Troponin I <0.012 (0.000-0.034) ng/mL Total Protein (6.3-8.2) g/dL Albumin (3.5-5.0) g/dL Disposition Clinical Impression: Atrial fibrillation Disposition: HOME SELF-CARE Condition: Good Instructions (If sedation given, give patient instructions): A-fib (Atrial Fibrillation) (ED) Is patient prescribed a controlled substance at d/c from ED?: No Referrals: Neftaly Salinas DO [Primary Care Provider] - 1-2 days Time of Disposition: 12:40
[2022-04-26 10:55] LABS: Basophils % (A) 1 %; Eosinophils # (A) 0.1 k/uL (0-0.7); Eosinophils % (A) 2 %; HCT 43.2 % (34.0-46.0); Hypochromasia Slight; Lymphocytes # (A) 0.8 k/uL (1.0-4.8); Lymphocytes % (A) 14 %; MCH 27.5 pg (25.0-35.0); MCHC 32.4 g/dL (31.0-37.0); MCV 84.8 fL (80.0-100.0); Mean Platelet Volume 8.2; Monocytes # (A) 0.3 k/uL (0-1.0); Monocytes % (A) 5 %; Neutrophils # (A) 4.2 k/uL (1.3-7.7); Neutrophils % (A) 77 %; Platelet Count 302 k/uL (150-450); RDW 14.2 % (11.5-15.5); WBC 5.4 k/uL (3.8-10.6)
[2022-04-26 11:08] LABS: Albumin 4.2 g/dL (3.5-5.0); Total Bilirubin 0.9 mg/dL (0.2-1.3); Total Protein 6.9 g/dL (6.3-8.2)
[2022-04-26 11:13] LABS: Magnesium 2.1 mg/dL (1.6-2.3); Potassium 4.6 mmol/L (3.5-5.1)
[2022-04-26 11:21] VITALS: RESP 18; TEMP 97.9
--- NOTE | 2022-04-26 11:27 | XR ---
EXAMINATION TYPE: XR chest 2V DATE OF EXAM: 04/26/2022 COMPARISON: Chest x-ray May 21, 2011 HISTORY: Palpitations. TECHNIQUE: Frontal and lateral views of the chest are obtained. FINDINGS: There is no suspicious focal air space opacity, pleural effusion, or pneumothorax seen. T he cardiac silhouette size is stable and within normal limits. The osseous structures are intact. C holecystectomy clips are noted. Additional surgical clips epigastric region are present. IMPRESSION: No acute cardiopulmonary process. No significant change from prior.
[2022-04-26 12:32] VITALS: BP 137/96; PULSE 73
== END 2022-04-26 13:02 | disposition home or self-care (01) ==
LOC: EC 09:58
DX: I48.91 Unspecified atrial fibrillation (principal); I10 Essential (primary) hypertension; E07.9 Disorder of thyroid, unspecified; Z88.1 Allergy status to other antibiotic agents; Z88.2 Allergy status to sulfonamides; Z79.890 Hormone replacement therapy; Z20.822 Contact with and (suspected) exposure to COVID-19
CPT/HCPCS: 36415; 71046; 80053; 83605; 83735; 84484; 85025; 93005; 99285

== ENCOUNTER → 2022-09-09 | Outpatient (CLI) | payer MEDICARE, OTHER ==
--- NOTE | 2022-09-09 12:43 | XR ---
EXAMINATION TYPE: XR chest 2V DATE OF EXAM: 09/09/2022 COMPARISON: NONE TECHNIQUE: PA and lateral views submitted. HISTORY: Cough FINDINGS: The lungs are clear and there is no pneumothorax, pleural effusion, or focal pneumonia. Heart size normal and no overt failure. Osseous structures demonstrate hypertrophic and degenerative changes of the spine. AC joint arthropathy. Surgical clips in the abdomen. IMPRESSION: 1. No acute process.
== END | disposition home or self-care (01) ==
LOC: RADXRMAIN 12:26
PROVIDERS: ATTEND Family Medicine
DX: R05.3 Chronic cough (principal)
CPT/HCPCS: 71046

== ENCOUNTER 2023-02-19 12:47 | Emergency (ER) | payer MEDICARE, OTHER ==
[2023-02-19] MEDS ORDERED: SODIUM CHLORIDE 0.9% 1,000 ML IV STA (13:09)
[2023-02-19] MEDS ORDERED: diphenhydrAMINE 50 MG/ML 1 ML VIAL IVP STA (13:09)
[2023-02-19] MEDS ORDERED: ONDANSETRON 4 MG/2 ML VIAL IVP STA (13:09)
[2023-02-19] MEDS ORDERED: ACETAMINOPHEN TAB 500 MG TAB PO STA (13:09)
--- NOTE | 2023-02-19 13:12 | ED ---
General Adult HPI - General Chief complaint: Headache Stated complaint: HTN, Headache Time Seen by Provider: 02/19/23 12:49 Source: patient, EMS Mode of arrival: EMS Limitations: no limitations - History of Present Illness Initial comments: Dictation was produced using [employer] dictation software. please excuse any grammatical, word or spelling errors. Chief Complaint: 73-year-old female presents to the ER for headache History of Present Illness: Patient 73-year-old female presents emergency Department with a headache. Patient has history of migraines how she states that this headache is a little different. Patient reports that the headache started at 9 PM last night. States that he felt like it it all at once. She does not report that this is the worse headache she's ever had in her life. States that the migraine she's expressible passes worse. States that involves her sinus. She has been having some coughing fits over the last couple days. Denies any other sick contacts. No numbness or paresthesias to arms or legs. No neck stiffness. Denies any vision changes. She called EMS who checked her blood pressure upon arrival and was found to be high. The ROS documented in this emergency department record has been reviewed and confirmed by me. Those systems with pertinent positive or negative responses have been documented in the HPI. All other systems are other negative and/or noncontributory. - Related Data Home Medications Medication Instructions Recorded Confirmed Cyanocobalamin [Vitamin B-12] 2,500 mcg PO DAILY@1200 01/19/15 01/19/15 FLUoxetine HCL 40 mg PO DAILY 01/19/15 01/19/15 LORazepam [Ativan] 0.5 mg PO DAILY 01/19/15 01/19/15 Levothyroxine Sodium [Synthroid] 112 mcg PO DAILY 01/19/15 01/19/15 amLODIPine BESYLATE/BENAZEPRIL 1 each PO DAILY 01/19/15 01/19/15 [Amlodipine-Benazepril 5-20 mg] Allergies Allergy/AdvReac Type Severity Reaction Status Date / Time sulfamethoxazole Allergy Rash/Hives Verified 02/19/23 12:58 [From Bactrim] trimethoprim [From Bactrim] Allergy Rash/Hives Verified 02/19/23 12:58 Review of Systems ROS Statement: Those systems with pertinent positive or pertinent negative responses have been documented in the HPI. ROS Other: All systems not noted in ROS Statement are negative. Past Medical History Past Medical History: Hypertension, Osteoarthritis (OA), Thyroid Disorder History of Any Multi-Drug Resistant Organisms: None Reported Past Surgical History: Bariatric Surgery, Cholecystectomy, Hernia Repair Additional Past Surgical History / Comment(s): kidney stone removal, ablation Past Psychological History: No Psychological Hx Reported Smoking Status: Never smoker Past Alcohol Use History: None Reported Past Drug Use History: None Reported General Exam - General Exam Comments Initial Comments: PHYSICAL EXAM: General Impression: Alert and oriented x3, not in acute distress HEENT: Normocephalic atraumatic, extra-ocular movements intact, pupils equal and reactive to light bilaterally, mucous membranes moist. Cardiovascular: Heart regular rate and rhythm Chest: Able to complete full sentences, no retractions, no tachypnea Abdomen: abdomen soft, non-tender, non-distended, no organomegaly Musculoskeletal: Pulses present and equal in all extremities, no peripheral edema Motor: no focal deficits noted Neurological: CN II-XII grossly intact, no focal motor or sensory deficits noted Skin: Intact with no visualized rashes Psych: Normal affect and mood Limitations: no limitations Course Vital Signs 02/19/23 02/19/23 02/19/23 12:49 13:30 14:00 Temperature 98.5 F Pulse Rate 62 62 64 Respiratory 18 18 14 Rate Blood Pressure 162/89 153/78 O2 Sat by Pulse 95 86 L Oximetry EKG Findings - EKG Comments: EKG Findings:: My EKG interpretation: Ventricular rate 61, sinus rhythm,. 117, QRS 90, QTc 434. No FL prolongation, no QTC prolongation, no ST or T-wave changes noted. Overall, this EKG is unremarkable Medical Decision Making - Medical Decision Making Was pt. sent in by a medical professional or institution (, PA, HEALTH PROGRAM SPECIALIST, urgent care, hospital, or custodial...) When possible be specific @ -No Did you speak to anyone other than the patient for history (EMS, parent, family, police, friend...)? What history was obtained from this source @ -No Did you review nursing and triage notes (agree or disagree)? Why? @ -I reviewed and agree with nursing and triage notes Were old charts reviewed (outside hosp., previous admission, EMS record, old EKG, old radiological studies, urgent care reports/EKG's, custodial records)? Report findings @ -No old charts were reviewed Differential Diagnosis (chest pain, altered mental status, abdominal pain women, abdominal pain men, vaginal bleeding, musculoskeletal, weakness, fever, dyspnea, syncope, headache, dizziness, GI bleed, back pain, seizure, CVA, palpatations, mental health)? @ -Differential Headache: Migraine, tension, cluster, carbon monoxide, central venous thrombosis, pension karma temporal arteritis, acute closure glaucoma, intercranial hemorrhage, mastoiditis, sinusitis, head injury, this is not meant to be an all-inclusive list. EKG interpreted by me (3pts min.). @ -None done X-rays interpreted by me (1pt min.). @ -None done CT interpreted by me (1pt min.). @ -Computed tomography scan of the brain shows no acute processes. CT angiography of the head and neck shows no acute processes. U/S interpreted by me (1pt. min.). @ -None done What testing was considered but not performed or refused? (CT, X-rays, U/S, labs)? Why? @ -Lumbar puncture was considered and even recommended outpatient do not want that procedure. States that her headache is improved. She did feel comfortable given that she has a normal CT and CT angiography along with resolution of her symptoms to be discharge. She is given strict return precautions. What meds were considered but not given or refused? Why? @ -None Did you discuss the management of the patient with other professionals (professionals i.e. , PA, HEALTH PROGRAM SPECIALIST, lab, RT, psych nurse, high school social studies tutor, environmental emergencies planner, teacher, campus security officer, case work aide)? Give summary @ -No Was smoking cessation discussed for >3mins.? @ -No Was critical care preformed (if so, how long)? @ -No Were there social determinants of health that impacted care today? How? (Homelessness, low income, unemployed, alcoholism, drug addiction, transportation, low edu. Level, literacy, decrease access to med. care, [facility], rehab)? @ -No Was there de-escalation of care discussed even if they declined (Discuss DNR or withdrawal of care, Hospice)? DNR status @ -No What co-morbidities impacted this encounter? (DM, HTN, Smoking, COPD, CAD, Cancer, CVA, ARF, Chemo, Hep., AIDS, mental health diagnosis, sleep apnea, morbid obesity)? @ -None Was patient admitted / discharged? Hospital course, mention meds given and route, prescriptions, significant lab abnormalities, going to OR and other pertinent info. @ -73-year-old female presents emergency department with acute headache. Vital signs are stable. She did say that her headache was thunderclap and rather severe do not worst headache of her life. Physical examination is benign. Imaging studies are negative. Lumbar puncture was discussed with patient to rule out small aneurysmal bleeding. She not have this procedure given that her symptoms are completely resolved along with negative scans. She is given strict return precautions. Advised follow-up with primary care doctor. Undiagnosed new problem with uncertain prognosis? @ -No Drug Therapy requiring intensive monitoring for toxicity (Heparin, Nitro, Insulin, Cardizem)? @ -No Were any procedures done? @ -No Diagnosis/symptom? Acute, or Chronic, or Acute on Chronic? Uncomplicated (without systemic symptoms) or Complicated (systemic symptoms)? @ -Acute headache Side effects of treatment? @ -No Exacerbation, Progression, or Severe Exacerbation? @ -No Poses a threat to life or bodily function? How? (Chest pain, [place], [place], pneumonia, PE, COPD, DKA, ARF, appy, cholecystitis, CVA, Diverticulitis, Homicidal, Suicidal, threat to staff... and all critical care pts) @ -No - Lab Data Result diagrams: 02/19/23 13:10 02/19/23 13:10 Lab Results 02/19/23 02/19/23 Range/Units 13:10 13:10 WBC 4.7 (3.8-10.6) k/uL RBC 4.58 (3.80-5.40) m/uL Hgb 12.6 (11.4-16.0) gm/dL Hct 38.0 (34.0-46.0) % MCV 83.0 (80.0-100.0) fL MCH 27.6 (25.0-35.0) pg MCHC 33.3 (31.0-37.0) g/dL RDW 14.6 (11.5-15.5) % Plt Count 234 (150-450) k/uL MPV 7.5 Neutrophils % 85 % Lymphocytes % 5 % Monocytes % 6 % Eosinophils % 2 % Basophils % 0 % Neutrophils # 4.0 (1.3-7.7) k/uL Lymphocytes # 0.2 L (1.0-4.8) k/uL Monocytes # 0.3 (0-1.0) k/uL Eosinophils # 0.1 (0-0.7) k/uL Basophils # 0.0 (0-0.2) k/uL Sodium 135 L (137-145) mmol/L Potassium 4.3 (3.5-5.1) mmol/L Chloride 105 (98-107) mmol/L Carbon Dioxide 22 (22-30) mmol/L Anion Gap 8 mmol/L BUN 9 (7-17) mg/dL Creatinine 0.83 (0.52-1.04) mg/dL Est GFR (CKD-EPI)AfAm 81 (>60 ml/min/1.73 sqM) Est GFR (CKD-EPI)NonAf 71 (>60 ml/min/1.73 sqM) Glucose 111 H (74-99) mg/dL Calcium 9.4 (8.4-10.2) mg/dL Magnesium 1.7 (1.6-2.3) mg/dL Total Bilirubin 0.9 (0.2-1.3) mg/dL AST 23 (14-36) U/L ALT 14 (4-34) U/L Alkaline Phosphatase 106 (38-126) U/L Total Protein 6.9 (6.3-8.2) g/dL Albumin 4.0 (3.5-5.0) g/dL Disposition Clinical Impression: Acute headache Disposition: HOME SELF-CARE Condition: Fair Instructions (If sedation given, give patient instructions): Acute Headache (ED) Is patient prescribed a controlled substance at d/c from ED?: No Referrals: Neftaly Salinas DO [Primary Care Provider] - 1-2 days Time of Disposition: 15:30
[2023-02-19 13:17] LABS: Basophils % (A) 0 %; Eosinophils # (A) 0.1 k/uL (0-0.7); Eosinophils % (A) 2 %; HGB 12.6 gm/dL (11.4-16.0); Lymphocytes # (A) 0.2 k/uL (1.0-4.8); Lymphocytes % (A) 5 %; MCH 27.6 pg (25.0-35.0); MCHC 33.3 g/dL (31.0-37.0); Mean Platelet Volume 7.5; Monocytes # (A) 0.3 k/uL (0-1.0); Monocytes % (A) 6 %; Neutrophils % (A) 85 %; Platelet Count 234 k/uL (150-450); RBC 4.58 m/uL (3.80-5.40); RDW 14.6 % (11.5-15.5); WBC 4.7 k/uL (3.8-10.6)
[2023-02-19 13:32] LABS: ALT 14 U/L (4-34); African American GFR (CKD) 81 (>60 ml/min/1.73 sqM); Anion Gap 8 mmol/L; Blood Urea Nitrogen 9 mg/dL (7-17); Calcium 9.4 mg/dL (8.4-10.2); Carbon Dioxide 22 mmol/L (22-30); Chloride 105 mmol/L (98-107); Glucose 111 mg/dL (74-99); Non-African American GFR(CKD) 71 (>60 ml/min/1.73 sqM); Sodium 135 mmol/L (137-145); Total Bilirubin 0.9 mg/dL (0.2-1.3); Total Protein 6.9 g/dL (6.3-8.2)
[2023-02-19 13:34] VITALS: TEMP 98.5
[2023-02-19 13:37] LABS: AST 23 U/L (14-36); Magnesium 1.7 mg/dL (1.6-2.3); Potassium 4.3 mmol/L (3.5-5.1)
[2023-02-19 13:38] LABS: Alkaline Phosphatase 106 U/L (38-126)
--- NOTE | 2023-02-19 14:04 | CT ---
EXAMINATION TYPE: CT brain wo con CT DLP: 1100.4 mGycm, Automated exposure control for dose reduction was used. DATE OF EXAM: 02/19/2023 1:41 PM COMPARISON: CT brain 06/06/2014. CLINICAL INDICATION:Female, 73 years old with history of headache. TECHNIQUE: Brain: Axial CT images of the brain were obtained with coronal and sagittal reformats created and rev iewed. Contrast used: None. Oral contrast used: None. FINDINGS: Brain: Extra-axial spaces: No abnormal extra-axial fluid collections. Ventricular system: Within normal limits Cerebral parenchyma: No acute intraparenchymal hemorrhage or mass effect. The zuleta-white junction is well differentiated. Scattered hypoattenuating areas are seen within the white matter. Cerebellum: Unremarkable. Mass effect: No evidence of midline shift. Intracranial vasculature: Atherosclerotic calcifications of the intracranial vessels. Soft tissues: Normal. Calvarium/osseous structures: No depressed skull fracture. Paranasal sinuses and mastoid air cells: Mild scattered paranasal sinus disease. Visualized orbits: Bilateral aphakia IMPRESSION: No acute intracranial process.
--- NOTE | 2023-02-19 15:20 | CT ---
EXAMINATION TYPE: CT angio head neck CT DLP: 536.5 mGycm, Automated exposure control for dose reduction was used. DATE OF EXAM: 02/19/2023 3:09 PM COMPARISON: . CLINICAL INDICATION:Female, 73 years old with history of headache; PHH, Headache since tubal x 3 days . TECHNIQUE: Axially acquired helical CT angiogram of the head and neck was obtained with contrast. Axi al images are supplemented with 3D reconstructions which were post-processed at an independent workst at[facility]placed by [facility]. NASCET criteria used. Contrast used:65 cc mL of Isovue 370 with IV Contrast, Oral contrast used: None. FINDINGS: CTA HEAD: No evidence of acute intracranial hemorrhage, mass effect, or midline shift. The ventricles, sulci, a nd cisterns are unremarkable. The visualized portions of the internal carotid arteries, middle cerebral arteries, anterior cerebral arteries, and posterior cerebral arteries are patent. The basilar and vertebral arteries are patent. CTA NECK: Right Carotid System: The common carotid artery and external carotid artery are patent. The carotid bifurcation demonstrate s no evidence of hemodynamically significant stenosis. The remaining portions of the internal carotid artery demonstrate normal size without significant narrowing. Left Carotid System: The common carotid artery and external carotid artery are patent. The carotid bifurcation demonstrate s no evidence of hemodynamically significant stenosis. The remaining portions of the internal carotid artery demonstrate normal size without significant narrowing. Vertebral arteries are patent without evidence hemodynamically significant stenosis. There is a three-vessel aortic arch. The origins of the great vessels are patent. No evidence of hemo dynamically significant stenosis. Upper thorax: No significant abnormality IMPRESSION: 1. No evidence of dissection of the cervical internal carotid arteries or vertebral arteries or any e vidence of significant stenosis at the carotid bifurcations. 2. No evidence of intracranial high-grade stenosis or intracranial aneurysm.
[2023-02-19 15:52] VITALS: BP 140/75; PULSE 60; RESP 18
== END 2023-02-19 15:41 | disposition home or self-care (01) ==
LOC: EC 12:47
DX: R51.9 Headache, unspecified (principal); I10 Essential (primary) hypertension; E07.9 Disorder of thyroid, unspecified; M19.90 Unspecified osteoarthritis, unspecified site; Z88.2 Allergy status to sulfonamides; Z79.890 Hormone replacement therapy; Z79.899 Other long term (current) drug therapy
CPT/HCPCS: 36415; 80053; 83735; 85025; 70496; 70450; 70498; 99285; 96374; 96375; 96361; J1200; J2405; Q9967

== ENCOUNTER → 2023-07-04 | Outpatient (CLI) | payer BC, MEDICARE ==
--- NOTE | 2023-07-04 15:03 | XR ---
EXAMINATION TYPE: XR chest 2V DATE OF EXAM: 07/04/2023 COMPARISON: NONE HISTORY: Chronic cough. TECHNIQUE: Frontal and lateral views of the chest are obtained. FINDINGS: There is no focal air space opacity, pleural effusion, or pneumothorax seen. The cardiac silhouette size is within normal limits. The osseous structures are intact. IMPRESSION: No acute cardiopulmonary process.
== END | disposition home or self-care (01) ==
LOC: RADXRMAIN 11:40
PROVIDERS: ATTEND Family Medicine
DX: R05.3 Chronic cough (principal)
CPT/HCPCS: 71046

== ENCOUNTER 2024-03-14 18:23 | Emergency (ER) | payer MEDICARE ==
--- NOTE | 2024-03-14 19:13 | ED ---
Abdominal Pain HPI - General Source: patient, EMS, RN notes reviewed Mode of arrival: EMS Limitations: no limitations <Noy Riojas - Last Filed: 03/14/24 19:12> <Eugene Armenta - Last Filed: 03/14/24 22:42> - General Chief Complaint: Abdominal Pain Stated Complaint: ABD PAIN POSS KID STO Time Seen by Provider: 03/14/24 19:12 - History of Present Illness Initial Comments: Quick note: 74-year-old female presented to the ER with a chief complaint of left flank pain. Onset around noon. She also reports generalized abdominal pain. Admits to dry heaves no vomiting. States her urine appeared pink yesterday. History of stones. No fevers. No other complaints. (Noy Riojas) Patient is a 74-year-old female who presents emergency department complaining of left-sided flank pain. She was originally seen as a quick note. Has a history of kidney stones and feels like this may be kidney stones. Admits to dry heaves but no vomiting. Has noticed some pink urine. Most of the pain started today. Denies any significant nausea and vomiting at the moment. Denies constipation or diarrhea. Patient is on Eliquis for atrial fibrillation. Denies chest pain or shortness of breath. Presents for further evaluation. I evaluated patient when she was placed in room 6 after workup has been completed. (Eugene Armenta) - Related Data Home Medications Medication Instructions Recorded Confirmed Cyanocobalamin [Vitamin B-12] 2,500 mcg PO DAILY@1200 01/19/15 01/19/15 FLUoxetine HCL 40 mg PO DAILY 01/19/15 01/19/15 LORazepam [Ativan] 0.5 mg PO DAILY 01/19/15 01/19/15 Levothyroxine Sodium [Synthroid] 112 mcg PO DAILY 01/19/15 01/19/15 amLODIPine BESYLATE/BENAZEPRIL 1 each PO DAILY 01/19/15 01/19/15 [Amlodipine-Benazepril 5-20 mg] Previous Rx's Medication Instructions Recorded Ketorolac [Toradol] 10 mg PO Q8HR #15 tab 09/08/23 Ondansetron Odt [Zofran Odt] 4 mg PO Q8HR PRN #10 tab 09/08/23 Tamsulosin [Flomax] 0.4 mg PO DAILY #7 cap 09/08/23 Ketorolac [Toradol] 10 mg PO Q8HR 7 Days #21 tab 03/14/24 Allergies Allergy/AdvReac Type Severity Reaction Status Date / Time sulfamethoxazole Allergy Rash/Hives Verified 03/14/24 18:44 [From Bactrim] trimethoprim [From Bactrim] Allergy Rash/Hives Verified 03/14/24 18:44 Review of Systems ROS Other: All systems not noted in ROS Statement are negative. <Noy Riojas - Last Filed: 03/14/24 19:12> ROS Other: All systems not noted in ROS Statement are negative. <Eugene Armenta - Last Filed: 03/14/24 22:42> ROS Statement: Those systems with pertinent positive or pertinent negative responses have been documented in the HPI. Review of Systems: CONST: Denies fever EYES: Denies blurry vision ENT: Denies nasal congestion C/V: Denies Chest pain RESP: Denies shortness of breath GI: Endorses left-sided abdominal pain : Denies dysuria SKIN: Denies rash. MSK: Denies joint pain. NEURO: Denies headache (Eugene Armenta) Past Medical History Past Medical History: Hypertension, Osteoarthritis (OA), Thyroid Disorder History of Any Multi-Drug Resistant Organisms: None Reported Past Surgical History: Ablation, Bariatric Surgery, Cholecystectomy, Hernia Repair Additional Past Surgical History / Comment(s): kidney stone removal, ablation x2 as of 2023 Past Psychological History: Anxiety Smoking Status: Never smoker Past Alcohol Use History: None Reported Past Drug Use History: None Reported <Noy Riojas - Last Filed: 03/14/24 19:12> General Exam Limitations: no limitations <Noy Riojas - Last Filed: 03/14/24 19:12> <Eugene Armenta - Last Filed: 03/14/24 22:42> - General Exam Comments Initial Comments: Visual Physical Exam Vital signs reviewed General: Well-appearing, nontoxic, no acute distress. Head: Normocephalic, atraumatic Eyes: PERRLA, EOMI ENT: Airway patent Chest: Nonlabored breathing Skin: No visual rash, normal skin tone Neuro: Alert and oriented 3 Musculoskeletal: No gross abnormalities (Noy Riojas) General: Appears in no acute distress. HEAD: Normal with no signs of head trauma. EYES: EOMI ENT: Hearing grossly intact, normal oropharynx. RESPIRATORY: Clear breath sounds bilaterally. No wheezes, rales, or rhonchi. C/V: Regular rate and rhythm. S1 and S2 auscultated. Peripheral pulses 2+ intact throughout. ABD: Soft, nondistended. Mild tenderness to palpation over the left flank region. No guarding or rebound tenderness. No peritoneal signs. EXT: No obvious deformity SKIN: No rashes or lesions observed on exposed skin. NEURO: Alert and oriented x 4. (Eugene Armenta) Course Vital Signs 03/14/24 18:41 Temperature 98.4 F Pulse Rate 105 H Respiratory 16 Rate Blood Pressure 163/90 O2 Sat by Pulse 98 Oximetry Medical Decision Making <Noy Riojas - Last Filed: 03/14/24 19:12> - Lab Data Result diagrams: 03/14/24 19:34 03/14/24 19:34 <Eugene Armenta - Last Filed: 03/14/24 22:42> - Medical Decision Making I performed the quick note portion of this chart. Electronically signed by Noy Riojas PA-C (Noy Riojas) Was pt. sent in by a medical professional or institution ([facility] [place], PERCOLATOR OPERATOR, urgent care, hospital, or residential...) When possible be specific @ -No Did you speak to anyone other than the patient for history (EMS, parent, family, police, friend...)? What history was obtained from this source @ -No Did you review nursing and triage notes (agree or disagree)? Why? @ -I reviewed and agree with nursing and triage notes Were old charts reviewed (outside hosp., previous admission, EMS record, old EKG, old radiological studies, urgent care reports/EKG's, residential records)? Report findings @ -No old charts were reviewed Differential Diagnosis (chest pain, altered mental status, abdominal pain women, abdominal pain men, vaginal bleeding, weakness, fever, dyspnea, syncope, headache, dizziness, GI bleed, back pain, seizure, CVA, palpatations, mental health, musculoskeletal)? @ -Differential Abdominal Pain Women: Appendicitis, Cholecystitis, diverticulosis, ischemic bowel, pancreatitis, hepatitis, UTI, gastroenteritis, AAA, incarcerated hernia, bowel obstruction, constipation, inflammatory bowel, hepatitis, peptic ulcer disease, splenic infarction, perforated viscus, vulvitis, ovarian torsion, PID, kidney stone, placenta abruption, this is not meant to be an all-inclusive list EKG interpreted by me (3pts min.). @ -None done X-rays interpreted by me (1pt min.). @ -None done CT interpreted by me (1pt min.). @ -CT abdomen pelvis revealed a 7 mm distal left ureteral stone. Mild to moderate hydronephrosis present. U/S interpreted by me (1pt. min.). @ -None done What testing was considered but not performed or refused? (CT, X-rays, U/S, labs)? Why? @ -None What meds were considered but not given or refused? Why? @ -None Did you discuss the management of the patient with other professionals (dwayne andrea i.e. , PA, PERCOLATOR OPERATOR, lab, RT, psych nurse, social director, redrawer, teacher, water resources technical officer, case management rn)? Give summary @ -No Was smoking cessation discussed for >3mins.? @ -No Was critical care preformed (if so, how long)? @ -No Were there social determinants of health that impacted care today? How? (Homelessness, low income, unemployed, alcoholism, drug addiction, transportation, low edu. Level, literacy, decrease access to med. care, intermediate, rehab)? @ -No Was there de-escalation of care discussed even if they declined (Discuss DNR or withdrawal of care, Hospice)? DNR status @ -No What co-morbidities impacted this encounter? (DM, HTN, Smoking, COPD, CAD, Cancer, CVA, ARF, Chemo, Hep., AIDS, mental health diagnosis, sleep apnea, morbid obesity)? @ -None Was patient admitted / discharged? Hospital course, mention meds given and route, prescriptions, significant lab abnormalities, going to OR and other pertinent info. @ -Patient presents with left flank pain. Workup completed in triage. Workup remarkable for hematuria, as well as a left-sided distal ureteral lithiasis of 7 mm. Laboratory studies otherwise remarkable for CKD at her baseline. No evidence of infected stone or UTI at this time. Vital signs are within acceptable limits. I evaluated the patient in the room. We discussed results. She will be given a 1 L fluid bolus as well as IV Toradol and Zofran. I will also provide her with a prescription for ketorolac at home as well as a starter pack of Zofran. Patient was in agreement this plan. She already follows up with Dr. Friedman and she will follow-up with him this week as well as her PCP. Patient was in agreement this plan. Strict return precautions discussed including intractable abdominal pain, nausea, or signs of infection such as fever. She was in agreement this plan. Anti-biotics are not indicated. II instructed the patient to follow up with their PCP in the next 1-3 days. I explained that the patient should return to the emergency department if they experience any worsening symptoms. Strict return precautions were discussed with the patient. The patient expressed understanding of these instructions. I answered all questions that the patient had. The patient was discharged home in good condition with their prescriptions and follow up information. Undiagnosed new problem with uncertain prognosis? @ -No Drug Therapy requiring intensive monitoring for toxicity (Heparin, Nitro, Insulin, Cardizem)? @ -No Were any procedures done? @ -No Diagnosis/symptom? @ -Ureterolithiasis Acute, or Chronic, or Acute on Chronic? @ -Acute Uncomplicated (without systemic symptoms) or Complicated (systemic symptoms)? @ -Complicated Side effects of treatment? @ -No Exacerbation, Progression, or Severe Exacerbation? @ -No Poses a threat to life or bodily function? How? (Chest pain, [place], [place], pneumonia, PE, COPD, DKA, ARF, appy, cholecystitis, CVA, Diverticulitis, Homicidal, Suicidal, threat to staff... and all critical care pts) @ -Unlikely at this time (Eugene Armenta) - Lab Data Lab Results 03/14/24 03/14/24 03/14/24 Range/Units 19:34 19:34 19:34 WBC 10.5 (3.8-10.6) k/uL RBC 4.62 (3.80-5.40) m/uL Hgb 11.4 (11.4-16.0) gm/dL Hct 36.5 (34.0-46.0) % MCV 79.0 L (80.0-100.0) fL MCH 24.8 L (25.0-35.0) pg MCHC 31.4 (31.0-37.0) g/dL RDW 15.3 (11.5-15.5) % Plt Count 275 (150-450) k/uL MPV 7.7 Neutrophils % 93 % Lymphocytes % 4 % Monocytes % 2 % Eosinophils % 0 % Basophils % 0 % Neutrophils # 9.7 H (1.3-7.7) k/uL Lymphocytes # 0.4 L (1.0-4.8) k/uL Monocytes # 0.2 (0-1.0) k/uL Eosinophils # 0.0 (0-0.7) k/uL Basophils # 0.0 (0-0.2) k/uL Hypochromasia Slight Sodium 138 (137-145) mmol/L Potassium 4.3 (3.5-5.1) mmol/L Chloride 108 H (98-107) mmol/L Carbon Dioxide 20 L (22-30) mmol/L Anion Gap 10 mmol/L BUN 16 (7-17) mg/dL Creatinine 1.34 H (0.52-1.04) mg/dL Est GFR (CKD-EPI)AfAm 45 (>60 ml/min/1.73 sqM) Est GFR (CKD-EPI)NonAf 39 (>60 ml/min/1.73 sqM) Glucose 121 H (74-99) mg/dL Plasma Lactic Acid Peyman (0.7-2.0) mmol/L Calcium 9.4 (8.4-10.2) mg/dL Total Bilirubin 0.6 (0.2-1.3) mg/dL AST 23 (14-36) U/L ALT 15 (4-34) U/L Alkaline Phosphatase 126 (38-126) U/L Total Protein 6.9 (6.3-8.2) g/dL Albumin 4.4 (3.5-5.0) g/dL Amylase 65 (30-110) U/L Lipase 178 (23-300) U/L Urine Color Yellow Urine Appearance Cloudy H (Clear) Urine pH 6.5 (5.0-8.0) Ur Specific [place] 1.019 (1.001-1.035) Urine Protein 1+ H (Negative) Urine Glucose (UA) Negative (Negative) Urine Ketones 2+ H (Negative) Urine Blood Large H (Negative) Urine Nitrite Negative (Negative) Urine Bilirubin Negative (Negative) Urine Urobilinogen <2.0 (<2.0) mg/dL Ur Leukocyte Esterase Trace H (Negative) Urine RBC 124 H (0-5) /hpf Urine WBC 2 (0-5) /hpf Ur Squamous Epith Cells 1 (0-4) /hpf Urine Mucus Rare H (None) /hpf 03/14/24 Range/Units 19:34 WBC (3.8-10.6) k/uL RBC (3.80-5.40) m/uL Hgb (11.4-16.0) gm/dL Hct (34.0-46.0) % MCV (80.0-100.0) fL MCH (25.0-35.0) pg MCHC (31.0-37.0) g/dL RDW (11.5-15.5) % Plt Count (150-450) k/uL MPV Neutrophils % % Lymphocytes % % Monocytes % % Eosinophils % % Basophils % % Neutrophils # (1.3-7.7) k/uL Lymphocytes # (1.0-4.8) k/uL Monocytes # (0-1.0) k/uL Eosinophils # (0-0.7) k/uL Basophils # (0-0.2) k/uL Hypochromasia Sodium (137-145) mmol/L Potassium (3.5-5.1) mmol/L Chloride (98-107) mmol/L Carbon Dioxide (22-30) mmol/L Anion Gap mmol/L BUN (7-17) mg/dL Creatinine (0.52-1.04) mg/dL Est GFR (CKD-EPI)AfAm (>60 ml/min/1.73 sqM) Est GFR (CKD-EPI)NonAf (>60 ml/min/1.73 sqM) Glucose (74-99) mg/dL Plasma Lactic Acid Peyman 1.8 (0.7-2.0) mmol/L Calcium (8.4-10.2) mg/dL Total Bilirubin (0.2-1.3) mg/dL AST (14-36) U/L ALT (4-34) U/L Alkaline Phosphatase (38-126) U/L Total Protein (6.3-8.2) g/dL Albumin (3.5-5.0) g/dL Amylase (30-110) U/L Lipase (23-300) U/L Urine Color Urine Appearance (Clear) Urine pH (5.0-8.0) Ur Specific [place] (1.001-1.035) Urine Protein (Negative) Urine Glucose (UA) (Negative) Urine Ketones (Negative) Urine Blood (Negative) Urine Nitrite (Negative) Urine Bilirubin (Negative) Urine Urobilinogen (<2.0) mg/dL Ur Leukocyte Esterase (Negative) Urine RBC (0-5) /hpf Urine WBC (0-5) /hpf Ur Squamous Epith Cells (0-4) /hpf Urine Mucus (None) /hpf Disposition <Noy Riojas - Last Filed: 03/14/24 19:12> Is patient prescribed a controlled substance at d/c from ED?: No Time of Disposition: 22:17 <Eugene Armenta - Last Filed: 03/14/24 22:42> Clinical Impression: Ureterolithiasis Disposition: HOME SELF-CARE Condition: Good Instructions (If sedation given, give patient instructions): Kidney Stones (ED) Additional Instructions: You have a 7 mm kidney stone in your left ureter. Appears to be traveling and you should expect to excrete it. Continue to use strainer at home to monitor for signs of kidney stone in your urine. Continues to use analgesia medications at home. Follow-up with your urologist, Dr. Escobar. Please return to the emergency department if any worsening symptoms including worsening pain, nausea, vomiting, fevers. Prescriptions: Ketorolac [Toradol] 10 mg PO Q8HR 7 Days #21 tab Referrals: Neftaly Salinas DO [Primary Care Provider] - 1-2 days Jossue Escobar MD [STAFF PHYSICIAN] - 1-2 days
[2024-03-14 20:01] LABS: Basophils % (A) 0 %; Eosinophils % (A) 0 %; HCT 36.5 % (34.0-46.0); HGB 11.4 gm/dL (11.4-16.0); Hypochromasia Slight; Lymphocytes # (A) 0.4 k/uL (1.0-4.8); Lymphocytes % (A) 4 %; MCH 24.8 pg (25.0-35.0); MCHC 31.4 g/dL (31.0-37.0); Mean Platelet Volume 7.7; Monocytes # (A) 0.2 k/uL (0-1.0); Monocytes % (A) 2 %; Neutrophils # (A) 9.7 k/uL (1.3-7.7); Neutrophils % (A) 93 %; Platelet Count 275 k/uL (150-450); RBC 4.62 m/uL (3.80-5.40); RDW 15.3 % (11.5-15.5); WBC 10.5 k/uL (3.8-10.6)
[2024-03-14 20:03] LABS: Appearance,Urine Cloudy (Clear); Bilirubin,Urine Negative (Negative); Blood,Urine Large (Negative); Color,Urine Yellow; Glucose,Urine (UA) Negative (Negative); Ketones,Urine 2+ (Negative); Leukocyte Esterase,Urine Trace (Negative); Mucus,Urine Rare /hpf; Nitrite,Urine Negative (Negative); PH, Urine 6.5 (5.0-8.0); Protein,Urine 1+ (Negative); RBC,Urine 124 /hpf (0-5); Specific Gravity,Urine 1.019 (1.001-1.035); Squamous Epithelial Cell,Urine 1 /hpf (0-4); Urobilinogen,Urine <2.0 mg/dL (<2.0); WBC,Urine 2 /hpf (0-5)
[2024-03-14 20:27] LABS: ALT 15 U/L (4-34); AST 23 U/L (14-36); African American GFR (CKD) 45 (>60 ml/min/1.73 sqM); Albumin 4.4 g/dL (3.5-5.0); Alkaline Phosphatase 126 U/L (38-126); Amylase 65 U/L (30-110); Anion Gap 10 mmol/L; Blood Urea Nitrogen 16 mg/dL (7-17); Calcium 9.4 mg/dL (8.4-10.2); Carbon Dioxide 20 mmol/L (22-30); Chloride 108 mmol/L (98-107); Glucose 121 mg/dL (74-99); Lipase 178 U/L (23-300); Non-African American GFR(CKD) 39 (>60 ml/min/1.73 sqM); Potassium 4.3 mmol/L (3.5-5.1); Sodium 138 mmol/L (137-145); Total Bilirubin 0.6 mg/dL (0.2-1.3); Total Protein 6.9 g/dL (6.3-8.2)
--- NOTE | 2024-03-14 21:04 | CT ---
EXAMINATION TYPE: CT abdomen pelvis wo con DATE OF EXAM: 03/14/2024 8:59 PM COMPARISON: 09/08/2023 CLINICAL INDICATION: Female, 74 years old with history of left flank pain, Left side flank pain. TECHNIQUE: Axial images with sagittal coronal reformats. Examination of the solid and hollow viscera is limited given the lack of contrast. CT DLP: 1388.4 mGycm, Automated exposure control for dose reduction was used. FINDINGS: LUNG BASES: No evidence for nodule. No evidence for infiltrate. LIVER/GB: The gallbladder is unremarkable. No space-occupying hepatic lesion. PANCREAS: No pancreatic mass identified. No inflammatory process seen. SPLEEN: No evidence for splenomegaly. No intrasplenic lesions seen. ADRENALS: No adrenal nodules identified. No evidence for thickening. KIDNEYS: No evidence for renal mass. Distal left ureteral calculus measuring 7 mm resulting in modera te left-sided hydronephrosis. There is left renal edema and perinephric stranding. Additional calculu s lower pole left kidney measures 1.4 cm. Additional smaller adjacent calculi seen. Multiple calculi right kidney the largest of which measures up to 4 mm. BOWEL: Postoperative changes about the stomach. Nonvisualization of the appendix. Appendix has a norm al appearance. No evidence of bowel obstruction. No inflammatory process. Lymph nodes: No evidence for adenopathy greater than 1 cm. Abdominal aorta: Atheromatous changes seen. No evidence for aneurysm. Genital organs: No significant abnormality. Other: No significant abnormality. IMPRESSION: Distal left ureteral calculus measuring 7 mm resulting in moderate left-sided hydronephrosis. There i s left renal edema and perinephric stranding. [facility], , 03/14/2024 9:02 PM
[2024-03-14] MEDS: SODIUM CHLORIDE 0.9% 1,000 ML IV STA (21:57)
[2024-03-14] MEDS: KETOROLAC 15 MG/ML 1 ML VIAL IVP STA (21:57)
[2024-03-14] MEDS: ONDANSETRON 4 MG/2 ML VIAL IVP STA (21:58)
[2024-03-14] MEDS: ONDANSETRON 4 MG ODT STARTER PACK 2 TAB BTL PO STA (22:46)
[2024-03-14 22:51] VITALS: BP 135/79; PULSE 84; RESP 18; TEMP 98
== END 2024-03-14 22:51 | disposition home or self-care (01) ==
LOC: EC 18:23
DX: N13.2 Hydronephrosis with renal and ureteral calculous obstruction (principal); Z88.2 Allergy status to sulfonamides; Z88.1 Allergy status to other antibiotic agents
CPT/HCPCS: 36415; 80053; 82150; 83605; 83690; 85025; 81001; 74176; 99284; 96374; 96375; 96361; J2405; J1885; S0119

== ENCOUNTER → 2024-03-20 | Outpatient (CLI) | payer MEDICARE ==
--- NOTE | 2024-03-20 12:35 | XR ---
EXAMINATION TYPE: XR KUB DATE OF EXAM: 03/20/2024 COMPARISON: 01/05/2022 CLINICAL INDICATION: Female, 74 years old with history of N20.0 N20.1 CALCULUS OF KIDNEY/URETER; TECHNIQUE: XR KUB views of the abdomen. FINDINGS: Scoliotic curvature and degenerative change of the spine. The bowel gas pattern is nonspecific. Lung bases are clear. Diffuse generalized demineralization. There is SI joint arthropathy. Moderate hyper trophic hip arthropathy. Evidence of previous hernia repair surgery. Surgical changes in the gallblad hanh fossa. Elevated right hemidiaphragm. Additional surgical clips along the left paraspinal line. Left kidney: There is a large calculus occupying the left lower pole infundibulum and calyces measuri ng up to 2.4 cm. There is an additional renal pelvic calcification suspected measuring 7 mm. Right kidney: punctate 1 to 2 mm calcifications overlying the right renal outline. Pelvis: A rounded stable calcification lower left pelvis stable from prior exam and appears to be rel ated to a vascular phlebolith. IMPRESSION: 1. Large left renal and mid sized left renal pelvic calcifications. [facility], , 03/20/2024 12:33 PM
== END | disposition home or self-care (01) ==
LOC: LABWHC1 12:11
PROVIDERS: ATTEND Urology
DX: N20.0 Calculus of kidney (principal); N20.1 Calculus of ureter
CPT/HCPCS: 74018

== ENCOUNTER 2024-09-03 09:59 | Observation (INO) | payer MEDICARE ==
[2024-09-03 11:01] LABS: Basophils # (A) 0.05 10*3/uL (0.00-0.10); Basophils % (A) 0.9 %; Eosinophils # (A) 0.12 10*3/uL (0.04-0.35); Eosinophils % (A) 2.1 %; HCT 32.6 % (37.2-46.3); HGB 10.4 g/dL (12.0-15.0); Lymphocytes # (A) 0.84 10*3/uL (0.90-5.00); Lymphocytes % (A) 14.8 %; MCH 25.1 pg (27.0-32.0); MCHC 31.9 g/dL (32.0-37.0); MCV 78.7 fL (80.0-97.0); Mean Platelet Volume 9.6 fL (9.5-12.2); Monocytes # (A) 0.38 10*3/uL (0.20-1.00); Monocytes % (A) 6.7 %; Neutrophils # (A) 4.27 10*3/uL (1.80-7.70); Neutrophils % (A) 75.1 %; Platelet Count 282 10*3/uL (140-440); RBC 4.14 10*6/uL (4.10-5.20); RDW 17.2 % (11.5-14.5); WBC 5.68 10*3/uL (4.50-10.00)
[2024-09-03] MEDS: IPRATROPIUM-ALBUTEROL 3 ML NEB INHALATION STA (11:08)
[2024-09-03 11:20] LABS: ALT 18 U/L (4-34); African American GFR (CKD) 59 (>60 ml/min/1.73 sqM); Albumin 3.9 g/dL (3.5-5.0); Anion Gap 6 mmol/L; Blood Urea Nitrogen 15 mg/dL (7-17); Calcium 9.3 mg/dL (8.4-10.2); Carbon Dioxide 23 mmol/L (22-30); Chloride 110 mmol/L (98-107); Glucose 92 mg/dL (74-99); Non-African American GFR(CKD) 52 (>60 ml/min/1.73 sqM); Sodium 139 mmol/L (137-145); Total Bilirubin 1.1 mg/dL (0.2-1.3); Total Protein 6.4 g/dL (6.3-8.2)
[2024-09-03 11:24] LABS: AST 28 U/L (14-36); Alkaline Phosphatase 92 U/L (38-126); Partial Thromboplastin Time 22.7 sec (22.0-30.0); Potassium 4.5 mmol/L (3.5-5.1); Prothrombin Time 10.8 sec (10.0-12.5)
[2024-09-03 11:25] LABS: NT-Pro-B-Type Natriuretic Pept 2390 pg/mL
--- NOTE | 2024-09-03 11:33 | XR ---
EXAMINATION TYPE: XR chest 2V DATE OF EXAM: 09/03/2024 11:02 AM COMPARISON: Chest radiographs from 07/04/2023. CLINICAL INDICATION: Female, 74 years old with history of difficulty breathing; TECHNIQUE: XR chest 2V Frontal and lateral views of the chest. FINDINGS: Lungs/Pleura: There is no evidence of pleural effusion, focal consolidation, or pneumothorax. Pulmonary vascularity: Pulmonary vascular congestion. Heart/mediastinum: Cardiomediastinal silhouette is unremarkable. Musculoskeletal: No acute osseous pathology. IMPRESSION: Mild pulmonary edema. [facility], , 09/03/2024 11:31 AM
[2024-09-03 11:34] LABS: Appearance,Urine Clear (Clear); Bilirubin,Urine Negative (Negative); Blood,Urine Moderate (Negative); Color,Urine Light Yellow; Glucose,Urine (UA) Negative (Negative); Ketones,Urine Negative (Negative); Leukocyte Esterase,Urine Negative (Negative); Mucus,Urine Rare /hpf; Nitrite,Urine Negative (Negative); Protein,Urine Negative (Negative); RBC,Urine 108 /hpf (0-5); Specific Gravity,Urine 1.015 (1.001-1.035); Squamous Epithelial Cell,Urine <1 /hpf (0-4); Urobilinogen,Urine <2.0 mg/dL (<2.0); WBC,Urine 1 /hpf (0-5)
[2024-09-03 11:40] LABS: Influenza A Not Detected (Not Detectd); Influenza B Not Detected (Not Detectd); RSV Not Detected (Not Detectd)
[2024-09-03] MEDS ORDERED: ONDANSETRON 4 MG/2 ML VIAL IVP PRN (12:22)
[2024-09-03] MEDS ORDERED: NALOXONE 0.4 MG/ML 1 ML VIAL IV PRN (12:22)
[2024-09-03] MEDS: FUROSEMIDE 10 MG/ML 4 ML VIAL IV SCH (12:44)
--- NOTE | 2024-09-03 13:03 | ED ---
General Adult HPI - General Chief complaint: Shortness of Breath Stated complaint: SHIN Time Seen by Provider: 09/03/24 10:29 Source: patient, RN notes reviewed, old records reviewed Mode of arrival: ambulatory Limitations: no limitations - History of Present Illness Initial comments: Patient is a 75-year-old female presents emergency department complaining of shortness of breath. Worsens with exertion. Did have a recent cardioversion for atrial fibrillation at [facility] sometime over a week ago. States that since that time she has been having exertional dyspnea, possible worsening orthopnea with increased coughing in the mornings. Has noted some lower extremity edema as well. Denies any chest pain. Denies any nausea or vomiting or abdominal pain. Denies any other acute complaints at this time. Has a history of atrial fibrillation and is still on a blood thinning medication. He has been compliant with it. Also has a history of hypertension. Presents for further evaluation. - Related Data Home Medications Medication Instructions Recorded Confirmed Cyanocobalamin [Vitamin B-12] 2,500 mcg PO DAILY@1200 01/19/15 01/19/15 FLUoxetine HCL 40 mg PO DAILY 01/19/15 01/19/15 LORazepam [Ativan] 0.5 mg PO DAILY 01/19/15 01/19/15 Levothyroxine Sodium [Synthroid] 112 mcg PO DAILY 01/19/15 01/19/15 amLODIPine BESYLATE/BENAZEPRIL 1 each PO DAILY 01/19/15 01/19/15 [Amlodipine-Benazepril 5-20 mg] Previous Rx's Medication Instructions Recorded Ketorolac [Toradol] 10 mg PO Q8HR #15 tab 09/08/23 Ondansetron Odt [Zofran Odt] 4 mg PO Q8HR PRN #10 tab 09/08/23 Tamsulosin [Flomax] 0.4 mg PO DAILY #7 cap 09/08/23 Ketorolac [Toradol] 10 mg PO Q8HR 7 Days #21 tab 03/14/24 Allergies Allergy/AdvReac Type Severity Reaction Status Date / Time sulfamethoxazole Allergy Rash/Hives Verified 09/03/24 10:11 [From Bactrim] trimethoprim [From Bactrim] Allergy Rash/Hives Verified 09/03/24 10:11 codeine AdvReac Nausea & Verified 09/03/24 10:11 Vomiting Review of Systems ROS Statement: Those systems with pertinent positive or pertinent negative responses have been documented in the HPI. Review of Systems: CONST: Denies fever EYES: Denies blurry vision ENT: Denies nasal congestion C/V: Denies Chest pain RESP: Endorses exertional dyspnea GI: Denies abdominal pain : Denies dysuria SKIN: Denies rash. MSK: Denies joint pain. NEURO: Denies headache ROS Other: All systems not noted in ROS Statement are negative. Past Medical History Past Medical History: Atrial Fibrillation, Hypertension, Osteoarthritis (OA), Thyroid Disorder History of Any Multi-Drug Resistant Organisms: None Reported Past Surgical History: Ablation, Bariatric Surgery, Cholecystectomy, Hernia Repair Additional Past Surgical History / Comment(s): kidney stone removal, ablation Past Psychological History: Anxiety Smoking Status: Never smoker Past Alcohol Use History: None Reported Past Drug Use History: None Reported General Exam - General Exam Comments Initial Comments: General: Appears in no acute distress. HEAD: Normal with no signs of head trauma. EYES: PERRLA, EOMI, conjunctiva normal, no discharge. ENT: Hearing grossly intact, normal oropharynx. RESPIRATORY: Clear breath sounds bilaterally. No wheezes, rales, or rhonchi. No hypoxia C/V: Regular rate and rhythm. S1 and S2 auscultated, bilateral symmetrical lower extremity pitting edema, peripheral pulses 2+ and intact throughout ABD: Abd is soft, nontender, nondistended EXT: Normal range of motion, no obvious deformity SKIN: No rashes or lesions observed on exposed skin. NEURO: Alert and oriented x 4. Limitations: no limitations Course Vital Signs 09/03/24 09/03/24 09/03/24 10:06 11:09 11:18 Temperature 97.8 F Pulse Rate 46 L 60 64 Respiratory 22 Rate Blood Pressure 174/80 O2 Sat by Pulse 97 Oximetry 09/03/24 12:52 Temperature Pulse Rate 58 L Respiratory 20 Rate Blood Pressure 173/78 O2 Sat by Pulse 93 L Oximetry Medical Decision Making - Medical Decision Making Was pt. sent in by a medical professional or institution (, PA, MANUFACTURING WEAVER, urgent care, hospital, or jail...) When possible be specific @ -No Did you speak to anyone other than the patient for history (EMS, parent, family, police, friend...)? What history was obtained from this source @ -No Did you review nursing and triage notes (agree or disagree)? Why? @ -I reviewed and agree with nursing and triage notes Were old charts reviewed (outside hosp., previous admission, EMS record, old EKG, old radiological studies, urgent care reports/EKG's, jail records)? Report findings @ -No old charts were reviewed Differential Diagnosis (chest pain, altered mental status, abdominal pain women, abdominal pain men, vaginal bleeding, weakness, fever, dyspnea, syncope, headache, dizziness, GI bleed, back pain, seizure, CVA, palpatations, mental h ealth, musculoskeletal)? @ -Differential Dyspnea: Coronary syndrome, arrhythmia, tamponade, asthma, COPD, pulmonary embolism, pneumonia, pneumothorax, pulmonary effusion, anaphylaxis, diabetic ketoacidosis, flailed chest, pulmonary contusion, diaphragmatic rupture, anemia, neuromuscular, this is not meant to be an all-inclusive list. EKG interpreted by me (3pts min.). @ -As above X-rays interpreted by me (1pt min.). @ -Chest x-ray shows mild pulmonary vascular congestion bilaterally. CT interpreted by me (1pt min.). @ -None done U/S interpreted by me (1pt. min.). @ -None done What testing was considered but not performed or refused? (CT, X-rays, U/S, labs)? Why? @ -None What meds were considered but not given or refused? Why? @ -None Did you discuss the management of the patient with other professionals (professionals i.e. , PA, MANUFACTURING WEAVER, lab, RT, psych nurse, social service director, shuttle buggy operator, teacher, community reinvestment act officer, embedded case manager)? Give summary @ -Discussed with the admitting provider, [facility] Dr. Barrios who accepted the admission. Was smoking cessation discussed for >3mins.? @ -No Was critical care preformed (if so, how long)? @ -No Were there social determinants of health that impacted care today? How? (Homelessness, low income, unemployed, alcoholism, drug addiction, transportati on, low edu. Level, literacy, decrease access to med. care, intermediate, rehab)? @ -No Was there de-escalation of care discussed even if they declined (Discuss DNR or withdrawal of care, Hospice)? DNR status @ -No What co-morbidities impacted this encounter? (DM, HTN, Smoking, COPD, CAD, Cancer, CVA, ARF, Chemo, Hep., AIDS, mental health diagnosis, sleep apnea, morbid obesity)? @ -None Was patient admitted / discharged? Hospital course, mention meds given and route, prescriptions, significant lab abnormalities, going to OR and other pertinent info. @ -Based on the patient's presentation and physical exam, presents emergency department complaining of clinical symptoms of what seems like CHF. Had a recent cardioversion. EKG shows normal sinus rhythm. No chest pain. We will obtain labs, chest x-ray, and place the patient on cardiac monitoring. She was in agreement this plan. Vital signs are within acceptable limits. EKG shows no signs of acute ischemia. Chest x-ray shows pulmonary vascular congestion. Labs remarkable for BNP elevated at 2300. I updated the patient. At this time, as the patient is having exertional dyspnea, what seems to be orthopnea as well as PND, as well as lower extremity edema she will be admitted for an echo and started on diuretic therapy. She was in agreement this plan. Placed on Lasix twice daily. Home meds reordered. Cardiology consulted. Echo ordered. She was in agreement this plan. I discussed the case with the admitting provider, Dr. Barrios who accepted the admission. Undiagnosed new problem with uncertain prognosis? @ -No Drug Therapy requiring intensive monitoring for toxicity (Heparin, Nitro, Insulin, Cardizem)? @ -No Were any procedures done? @ -No Diagnosis/symptom? @ -Dyspnea, CHF Acute, or Chronic, or Acute on Chronic? @ -Acute Uncomplicated (without systemic symptoms) or Complicated (systemic symptoms)? @ -Complicated Side effects of treatment? @ -No Exacerbation, Progression, or Severe Exacerbation? @ -No Poses a threat to life or bodily function? How? (Chest pain, USA, MD, pneumonia, PE, COPD, DKA, ARF, appy, cholecystitis, CVA, Diverticulitis, Homicidal, Suicidal, threat to staff... and all critical care pts) @ -Potentially, yes - Lab Data Result diagrams: 09/03/24 10:45 09/03/24 10:45 Lab Results 09/03/24 09/03/24 09/03/24 Range/Units 10:45 10:45 10:45 WBC 5.68 (4.50-10.00) 10*3/uL RBC 4.14 (4.10-5.20) 10*6/uL Hgb 10.4 L (12.0-15.0) g/dL Hct 32.6 L (37.2-46.3) % MCV 78.7 L (80.0-97.0) fL MCH 25.1 L (27.0-32.0) pg MCHC 31.9 L (32.0-37.0) g/dL Plt Count 282 (140-440) 10*3/uL MPV 9.6 (9.5-12.2) fL Immature Gran % (Auto) 0.4 % Neutrophils % 75.1 % Lymphocytes % 14.8 % Monocytes % 6.7 % Eosinophils % 2.1 % Basophils % 0.9 % Immature Gran # 0.02 (0.00-0.04) 10*3/uL Neutrophils # 4.27 (1.80-7.70) 10*3/uL Lymphocytes # 0.84 L (0.90-5.00) 10*3/uL Monocytes # 0.38 (0.20-1.00) 10*3/uL Eosinophils # 0.12 (0.04-0.35) 10*3/uL Basophils # 0.05 (0.00-0.10) 10*3/uL PT 10.8 (10.0-12.5) sec INR 1.0 (<1.2) APTT 22.7 (22.0-30.0) sec Sodium 139 (137-145) mmol/L Potassium 4.5 (3.5-5.1) mmol/L Chloride 110 H (98-107) mmol/L Carbon Dioxide 23 (22-30) mmol/L Anion Gap 6 mmol/L BUN 15 (7-17) mg/dL Creatinine 1.07 H (0.52-1.04) mg/dL Est GFR (CKD-EPI)AfAm 59 (>60 ml/min/1.73 sqM) Est GFR (CKD-EPI)NonAf 52 (>60 ml/min/1.73 sqM) Glucose 92 (74-99) mg/dL Plasma Lactic Acid [place] (0.7-2.0) mmol/L Calcium 9.3 (8.4-10.2) mg/dL Magnesium 2.0 (1.6-2.3) mg/dL Total Bilirubin 1.1 (0.2-1.3) mg/dL AST 28 (14-36) U/L ALT 18 (4-34) U/L Alkaline Phosphatase 92 (38-126) U/L NT-Pro-B Natriuret Pep 2390 pg/mL Total Protein 6.4 (6.3-8.2) g/dL Albumin 3.9 (3.5-5.0) g/dL Urine Color Urine Appearance (Clear) Urine pH (5.0-8.0) Ur Specific [place] (1.001-1.035) Urine Protein (Negative) Urine Glucose (UA) (Negative) Urine Ketones (Negative) Urine Blood (Negative) Urine Nitrite (Negative) Urine Bilirubin (Negative) Urine Urobilinogen (<2.0) mg/dL Ur Leukocyte Esterase (Negative) Urine RBC (0-5) /hpf Urine WBC (0-5) /hpf Ur Squamous Epith Cells (0-4) /hpf Urine Mucus (None) /hpf Influenza Type A (PCR) (Not Detectd) Influenza Type B (PCR) (Not Detectd) RSV (PCR) (Not Detectd) SARS-CoV-2 (PCR) (Not Detectd) 09/03/24 09/03/24 09/03/24 Range/Units 10:45 10:45 11:11 WBC (4.50-10.00) 10*3/uL RBC (4.10-5.20) 10*6/uL Hgb (12.0-15.0) g/dL Hct (37.2-46.3) % MCV (80.0-97.0) fL MCH (27.0-32.0) pg MCHC (32.0-37.0) g/dL Plt Count (140-440) 10*3/uL MPV (9.5-12.2) fL Immature Gran % (Auto) % Neutrophils % % Lymphocytes % % Monocytes % % Eosinophils % % Basophils % % Immature Gran # (0.00-0.04) 10*3/uL Neutrophils # (1.80-7.70) 10*3/uL Lymphocytes # (0.90-5.00) 10*3/uL Monocytes # (0.20-1.00) 10*3/uL Eosinophils # (0.04-0.35) 10*3/uL Basophils # (0.00-0.10) 10*3/uL PT (10.0-12.5) sec INR (<1.2) APTT (22.0-30.0) sec Sodium (137-145) mmol/L Potassium (3.5-5.1) mmol/L Chloride (98-107) mmol/L Carbon Dioxide (22-30) mmol/L Anion Gap mmol/L BUN (7-17) mg/dL Creatinine (0.52-1.04) mg/dL Est GFR (CKD-EPI)AfAm (>60 ml/min/1.73 sqM) Est GFR (CKD-EPI)NonAf (>60 ml/min/1.73 sqM) Glucose (74-99) mg/dL Plasma Lactic Acid [place] 1.1 (0.7-2.0) mmol/L Calcium (8.4-10.2) mg/dL Magnesium (1.6-2.3) mg/dL Total Bilirubin (0.2-1.3) mg/dL AST (14-36) U/L ALT (4-34) U/L Alkaline Phosphatase (38-126) U/L NT-Pro-B Natriuret Pep pg/mL Total Protein (6.3-8.2) g/dL Albumin (3.5-5.0) g/dL Urine Color Light Yellow Urine Appearance Clear (Clear) Urine pH 6.0 (5.0-8.0) Ur Specific [place] 1.015 (1.001-1.035) Urine Protein Negative (Negative) Urine Glucose (UA) Negative (Negative) Urine Ketones Negative (Negative) Urine Blood Moderate H (Negative) Urine Nitrite Negative (Negative) Urine Bilirubin Negative (Negative) Urine Urobilinogen <2.0 (<2.0) mg/dL Ur Leukocyte Esterase Negative (Negative) Urine RBC 108 H (0-5) /hpf Urine WBC 1 (0-5) /hpf Ur Squamous Epith Cells <1 (0-4) /hpf Urine Mucus Rare H (None) /hpf Influenza Type A (PCR) Not Detected (Not Detectd) Influenza Type B (PCR) Not Detected (Not Detectd) RSV (PCR) Not Detected (Not Detectd) SARS-CoV-2 (PCR) Not Detected (Not Detectd) - EKG Data -: EKG Interpreted by Me EKG Comments: 12-lead Electrocardiogram Interpretation Note EKG was reviewed and interpreted by myself. 12-lead ECG performed at 1043 is interpreted by me as revealing sinus bradycardia at a rate of 50 beats per minute. [place] is normal. MD interval is 196 ms, QRS duration is 98 ms, QTc is 454 ms.. There were no ST or T wave abnormalities to suggest myocardial ischemia or injury. R wave progression across the precordium was satisfactory. By my interpretation this EKG is non-diagnostic for acute ischemia. Disposition Clinical Impression: Dyspnea, CHF (congestive heart failure) Disposition: ADMITTED IP TO THIS HOSP Condition: Stable Referrals: Ozzie Gunn MD [Primary Care Provider] - 1-2 days Time of Disposition: 12:22
[2024-09-03] MEDS: ATORVASTATIN 20 MG TAB PO SCH (21:03)
[2024-09-03] MEDS: APIXABAN 5 MG TAB PO SCH (21:03)
--- NOTE | 2024-09-03 22:02 | P.HPIM ---
History of Present Illness H&P Date: 09/03/24 Chief Complaint: Difficulty in breathing Patient is a 74-year-old female with a known history of atrial fibrillation on anticoagulation with Eliquis, history of ablation about 2 weeks ago, hypothyroidism, hypertension and anxiety presents to ER with complaints of difficulty in breathing for the past 1 week. No complaints of chest pain. Breathing gets worse with exertion. Patient states that she had cardioversion about 2 weeks ago at [facility]. She was started on sotalol at the same time. She also noticed to have some leg swelling. Denied any nausea vomiting abdominal pain or diarrhea. No fever no chills. Does have cough without any sputum production. Patient states that she has been taking her medications on regular basis. Chest x-ray showed mild pulmonary edema EKG showed sinus bradycardia Laboratory data showed WBC 5.6 hemoglobin 10.4 MCV 78.4 and platelets 282 sodium 139 potassium 4.5 chloride 110 bicarb is 23 BUN 15 and creatinine 1.07, proBNP 2390. Liver enzymes are not elevated. Albumin 3.9 Urinalysis is negative for infection Influenza A B RSV and COVID-19 PCR not detected. Review of Systems Constitutional: Patient denies any fever or chills . No generalized weakness or weight loss. Abdomen: Patient denied nausea vomiting and diarrhea and abdominal pain. Cardiovascular: Patient denies any chest pain. Exertional short of breath no palpitations. Mild leg swelling Respiratory: patient does have cough without sputum production. Positive for shortness of breath Neurologic: Patient denied any numbness or tingling. no headache. Musculoskeletal: Patient denies any complaints of joint swelling or deformity. Skin: Negative Psychiatric: Negative Endocrine: No heat or cold intolerance. No recent weight gain. Genitourinary: No dysuria or hematuria. All other 14 point ROS negative except the above Past Medical History Past Medical History: Atrial Fibrillation, Hypertension, Osteoarthritis (OA), Thyroid Disorder History of Any Multi-Drug Resistant Organisms: None Reported Past Surgical History: Ablation, Bariatric Surgery, Cholecystectomy, Hernia Repair Additional Past Surgical History / Comment(s): kidney stone removal, ablation Past Psychological History: Anxiety Smoking Status: Never smoker Past Alcohol Use History: None Reported Past Drug Use History: None Reported Medications and Allergies Home Medications Medication Instructions Recorded Confirmed Type FLUoxetine HCL 40 mg PO DAILY 01/19/15 09/03/24 History Apixaban [Eliquis] 5 mg PO BID 09/03/24 09/03/24 History Atorvastatin [Lipitor] 20 mg PO HS 09/03/24 09/03/24 History Ergocalciferol [Vitamin D2 (1250 1,250 mcg PO MO 09/03/24 09/03/24 History Mcg = 58127 Iu)] Levothyroxine Sodium [Synthroid] 125 mcg PO AC-[id number] 09/03/24 09/03/24 History Sotalol [Betapace] 80 mg PO BID 09/03/24 09/03/24 History amLODIPine BESYLATE/BENAZEPRIL 1 cap PO DAILY 09/03/24 09/03/24 History [Lotrel 5-40 MG] Allergies Allergy/AdvReac Type Severity Reaction Status Date / Time sulfamethoxazole Allergy Rash/Hives Verified 09/03/24 13:22 [From Bactrim] trimethoprim [From Bactrim] Allergy Rash/Hives Verified 09/03/24 13:22 codeine AdvReac Nausea & Verified 09/03/24 13:22 Vomiting Physical Exam Vitals: Vital Signs Temp Pulse Resp BP Pulse Ox 09/03/24 12:52 58 L 20 173/78 93 L 09/03/24 11:18 64 09/03/24 11:09 60 09/03/24 10:06 97.8 F 46 L 22 174/80 97 Intake and Output 09/03/24 09/03/24 09/03/24 06:59 14:59 22:59 Other: Weight 134.263 kg PHYSICAL EXAMINATION: Patient is lying in the bed comfortably, no acute distress, awake alert and oriented.. HEENT: Normocephalic. Neck is supple. Pupils reactive. Nostrils clear. Oral cavity is moist. Neck reveals no JVD, carotid bruits, or thyromegaly. CHEST EXAMINATION: Trachea is central. Symmetrical expansion. Bibasilar coarse sounds. Nonlabored breathing no wheezing.. CARDIAC: Normal S1, S2 with no gallops. No murmurs ABDOMEN: Soft. Bowel sounds normal. No organomegaly. No abdominal bruits. Extremities: reveal no edema. No clubbing or cyanosis Neurologically awake, alert, oriented x3 with well-coordinated movements. No focal deficits noted Skin: No rash or skin lesions. Psychiatric: Coperative. Nonsuicidal Musculoskeletal: No joint swelling or deformity. Normal range of motion. Results CBC & Chem 7: 09/03/24 10:45 09/03/24 10:45 Labs: Abnormal Lab Results - Last 24 Hours (Table) 09/03/24 09/03/24 09/03/24 Range/Units 10:45 10:45 11:11 Hgb 10.4 L (12.0-15.0) g/dL Hct 32.6 L (37.2-46.3) % MCV 78.7 L (80.0-97.0) fL MCH 25.1 L (27.0-32.0) pg MCHC 31.9 L (32.0-37.0) g/dL Lymphocytes # 0.84 L (0.90-5.00) 10*3/uL Chloride 110 H (98-107) mmol/L Creatinine 1.07 H (0.52-1.04) mg/dL Urine Blood Moderate H (Negative) Urine RBC 108 H (0-5) /hpf Urine Mucus Rare H (None) /hpf Assessment and Plan Assessment: Worsening shortness of breath likely due to acute CHF. EF not known Paroxysmal atrial fibrillation. Currently in sinus rhythm. Recent history of cardioversion 2 weeks ago at [facility]. On anticoagulation with Eliquis Hypothyroidism Hypertension uncontrolled Anxiety Obesity with BMI 41.3 Microcytic anemia rule out iron deficiency GI prophylaxis Plan Patient will be continued on telemonitoring. Started on IV Lasix 40 mg every 12. Continue with anticoagulation with Eliquis cardiology was consulted for evaluation. Started back on amlodipine and lisinopril and sotalol as per home regimen. 2D echocardiogram was ordered. Follow-up closely. Time with Patient: Greater than 30
[2024-09-03] MEDS: SOTALOL 80 MG TAB PO SCH (22:22)
[2024-09-04] MEDS: LEVOTHYROXINE 125 MCG TAB PO SCH (05:54)
[2024-09-04 07:30] VITALS: RESP 16
--- NOTE | 2024-09-04 07:58 | CA ---
Transthoracic Echo Report Name: Ruthie Bradford Age: 74 Gender: F : 1950 Exam Date: 09/03/2024 14:12 Exam Location: [facility] Ht (in): 71 Wt (lb): 296 Ordering Physician: Eugene Armenta MD Attending/Referring Phys: Bdr Divina Walker RDCS Procedure CPT: Indications: chf Cardiac Hx: Technical Quality: Fair Contrast 1: Definity Total Dose (mL): 2 Contrast 2: Total Dose (mL): MEASUREMENTS (Male / Female) Normal Values 2D ECHO LV Diastolic Diameter PLAX 6.8 cm 4.2 - 5.9 / 3.9 - 5.3 cm LV Systolic Diameter PLAX 5.9 cm IVS Diastolic Thickness 1.1 cm 0.6 - 1.0 / 0.6 - 0.9 cm LVPW Diastolic Thickness 1.2 cm 0.6 - 1.0 / 0.6 - 0.9 cm LV Relative Wall Thickness 0.3 RV Internal Dim ED PLAX 3.3 cm LA Systolic Diameter LX 4.2 cm 3.0 - 4.0 / 2.7 - 3.8 cm M-MODE Aortic Root Diameter MM 3.9 cm LA Systolic Diameter MM 3.8 cm LA Ao Ratio MM 1.0 AV Cusp Separation MM 2.2 cm DOPPLER MV Area PHT 3.0 cm??? Mitral E Point Velocity 93.7 cm/s Mitral A Point Velocity 0.1 cm/s Mitral E to A Ratio 1313.4 MV Deceleration Time 253.9 ms TR Peak Velocity 255.4 cm/s TR Peak Gradient 26.1 mmHg FINDINGS Left Ventricle Left ventricular ejection fraction is estimated at 35-40 %. Mildly increased septal wall thickness. Mildly increased posterior wall thickness. Severely increased left ventricular diastolic diameter. Moderately reduced global left ventricular systolic function. Right Ventricle Moderate right ventricular dilatation. Right ventricular systolic pressure within normal limits. Right Atrium Moderate right atrial dilatation. Left Atrium Moderate left atrial dilatation. Mitral Valve Structurally normal mitral valve. Mild mitral regurgitation. No mitral stenosis. Mitral annular calcification. Aortic Valve Trileaflet aortic valve. No aortic valve stenosis or regurgitation. Tricuspid Valve Structurally normal tricuspid valve. Trace to mild tricuspid regurgitation. No tricuspid stenosis. Pulmonic Valve Structurally normal pulmonic valve. No pulmonic stenosis. Trace pulmonic regurgitation. Pericardium No pericardial or pleural effusion. Aorta Mild aortic dilatation at the level of the sinuses of valsalva (root). CONCLUSIONS Left ventricle is moderately enlarged with a global decrease in contractility estimate ejection fraction of 35%. Both atria are enlarged. There is mild mitral and tricuspid regurgitation. No significant pulmonary hypertension. No pericardial effusion. Prominent aortic root Previewed by: Dr. Omari Marks MD (Electronically Signed) Final Date: 04 Sep 2024 07:58
[2024-09-04 08:16] LABS: Basophils # (A) 0.05 X 10*3/uL (0.00-0.10); Eosinophils # (A) 0.16 X 10*3/uL (0.04-0.35); Eosinophils % (A) 3.3 %; Lymphocytes # (A) 0.78 X 10*3/uL (0.90-5.00); Lymphocytes % (A) 16.1 %; MCH 24.1 pg (27.0-32.0); MCHC 30.6 g/dL (32.0-37.0); MCV 78.8 FL (80.0-97.0); Mean Platelet Volume 10.5 FL (9.5-12.2); Monocytes # (A) 0.46 X 10*3/uL (0.20-1.00); Monocytes % (A) 9.5 %; NRBC Per 100 WBC 0 X 10*3/uL (0.00-0.01); Neutrophils # (A) 3.38 X 10*3/uL (1.80-7.70); Neutrophils % (A) 69.9 %; Platelet Count 324 X 10*3/uL (140-440); RBC 4.57 X 10*6/uL (4.10-5.20); RDW 17.2 % (11.5-14.5); WBC 4.84 X 10*3/uL (4.50-10.00)
[2024-09-04] MEDS ORDERED: amLODIPine 5 MG TAB PO SCH (09:00)
[2024-09-04] MEDS: FUROSEMIDE 40 MG TAB PO SCH (09:01)
[2024-09-04] MEDS: lisinopriL 20 MG TAB PO SCH (09:02)
[2024-09-04] MEDS: FLUoxetine HCL 20 MG CAP PO SCH (09:02)
[2024-09-04 10:27] LABS: % Iron Saturation 10.23 (12.00-45.00); ALT 16 U/L (8-44); AST 20 U/L (13-35); Albumin 4.1 g/dL (3.8-4.9); Albumin/Globulin Ratio 1.95 Ratio (1.60-3.17); Alkaline Phosphatase 116 U/L (41-126); BUN/Creat Ratio 9.83 Ratio (12.00-20.00); Blood Urea Nitrogen 11.8 mg/dL (9.0-27.0); Calcium 9.5 mg/dL (8.7-10.3); Chloride 106 mmol/L (96-109); Globulin 2.1 g/dL (1.6-3.3); Glucose 98 mg/dL (70-110); Iron 44 UG/DL (50-170); Potassium 4.1 mmol/L (3.5-5.5); Sodium 144 mmol/L (135-145); Total Bilirubin 1.1 mg/dL (0.3-1.2); Total Iron Binding Capacity 430 UG/DL (228-460); Total Protein 6.2 g/dL (6.2-8.2)
--- NOTE | 2024-09-04 11:31 | P.CRDCN ---
History of Present Illness History of present illness: HISTORY OF PRESENTING ILLNESS This is a pleasant 74-year-old female past medical history significant for paroxysmal atrial fibrillation status post ablation and cardioversion on [place] iquis, hypertension, hypothyroidism and dyslipidemia she follows in the office with a news agent at [place]. We have been asked to see in consultation for shortness of breath. She had an ablation in 2022 which was successful up until recently. She underwent a cardioversion August 23 and was started on sotalol. Since that time she endorses worsening shortness of breath. She has no palpitations, chest pain or dizziness. EKG reveals she is maintaining sinus mechanism. Chest x-ray reveals mild pulmonary edema and she has been started on IV Lasix. Laboratory data reviewed, WBC 4.8, hemoglobin 11, platelets 324, sodium 144, potassium 4.1, creatinine 1.2, magnesium 2.0, NT proBNP 2390 and tro ponin negative x 1. We ordered an echocardiogram which revealed global decrease in contractility with ejection fraction 35 to 40% with mild MR. According to her she has never had any heart failure in the past. The only old echocardiogram we have is from 2012 where her EF was normal. REVIEW OF SYSTEMS At the time of my exam: CONSTITUTIONAL: Denies fever or chills. CARDIOVASCULAR: Complains of shortness of breath. Denies chest pain, orthopnea, PND or palpitations. RESPIRATORY: Denies cough. GASTROINTESTINAL: Denies abdominal pain, diarrhea, constipation, nausea or vomiting. MUSCULOSKELETAL: Denies myalgias. NEUROLOGIC: Denies numbness, tingling, headache or weakness. ENDOCRINE: Denies fatigue, weight change, polydipsia or polyurina. GENITOURINARY: Denies burning, hematuria or urgency with micturation. HEMATOLOGIC: Denies history of anemia or bleeding. PHYSICAL EXAMINATION Blood pressure 149/84 heart rate 57 afebrile and maintaining oxygen saturation on room air. CONSTITUTIONAL: No apparent distress. HEENT: Head is normocephalic. Pupils are equal, round. Sclerae anicteric. Mucous membranes of the mouth are moist. No JVD. No carotid bruit. CHEST EXAMINATION: Lungs are clear to auscultation. No chest wall tenderness is noted on palpation or with deep breathing. HEART EXAMINATION: Regular rate and rhythm. S1, S2 heard. No murmurs, gallops or rub. ABDOMEN: Soft, nontender. EXTREMITIES: 2+ peripheral pulses, no lower extremity edema and no calf tenderness. NEUROLOGIC EXAMINATION: Patient is awake, alert and oriented x3. ASSESSMENT Acute systolic heart failure Paroxysmal atrial fibrillation currently maintaining sinus rhythm status post cardioversion May 2 Hypertension Dyslipidemia PLAN New cardiomyopathy could be secondary to recent cardioversion. We will optimize her medications today. She can go home and follow-up with her news agent. We will give her a copy of this echocardiogram and recommend that it be repeated in 4 to 6 weeks. Discontinue amlodipine and initiate lisinopril 40 mg daily. Transition to oral diuretics, Lasix 40 mg p.o. daily. Continue sotalol and Eliquis as previously ordered. Stable for discharge from a cardiac perspective to follow-up closely with her news agent. Thank you kindly for this consultation. Nurse Practitioner note has been reviewed, I agree with a documented findings and plan of care. Patient was seen and examined. Past Medical History Past Medical History: Atrial Fibrillation, Hyperlipidemia, Hypertension, Osteoarthritis (OA), Sleep Apnea/CPAP/BIPAP, Thyroid Disorder History of Any Multi-Drug Resistant Organisms: None Reported Past Surgical History: Ablation, Bariatric Surgery, Cholecystectomy, Hernia Repair Additional Past Surgical History / Comment(s): kidney stone removal, ablation, bilateral cataract SX Past Anesthesia/Blood Transfusion Reactions: No Reported Reaction Past Psychological History: Anxiety Smoking Status: Former smoker Past Alcohol Use History: None Reported Past Drug Use History: None Reported - Past Family History Mother Family Medical History: COPD, Hypertension Father Family Medical History: Cancer Additional Family Medical History / Comment(s): lung and brain cancer Medications and Allergies Home Medications Medication Instructions Recorded Confirmed Type FLUoxetine HCL 40 mg PO DAILY 01/19/15 09/03/24 History Apixaban [Eliquis] 5 mg PO BID 09/03/24 09/03/24 History Atorvastatin [Lipitor] 20 mg PO HS 09/03/24 09/03/24 History Ergocalciferol [Vitamin D2 (1250 1,250 mcg PO MO 09/03/24 09/03/24 History Mcg = 20037 Iu)] Levothyroxine Sodium [Synthroid] 125 mcg PO AC-BRKFST 09/03/24 09/03/24 History Sotalol [Betapace] 80 mg PO BID 09/03/24 09/03/24 History amLODIPine BESYLATE/BENAZEPRIL 1 cap PO DAILY 09/03/24 09/03/24 History [Lotrel 5-40 MG] Allergies Allergy/AdvReac Type Severity Reaction Status Date / Time sulfamethoxazole Allergy Rash/Hives Verified 09/03/24 13:22 [From Bactrim] trimethoprim [From Bactrim] Allergy Rash/Hives Verified 09/03/24 13:22 codeine AdvReac Nausea & Verified 09/03/24 13:22 Vomiting Physical Exam Vitals: Vital Signs Temp Pulse Pulse Resp BP BP Pulse Ox 09/04/24 07:00 97.9 F 57 L 16 149/84 99 09/04/24 02:00 97.9 F 53 L 18 163/90 97 09/03/24 23:39 97.9 F 53 L 17 153/90 94 L 09/03/24 19:31 52 L 17 169/96 94 L 09/03/24 18:29 60 20 166/80 96 09/03/24 17:00 44 L 20 141/90 94 L 09/03/24 16:00 43 L 20 151/74 96 09/03/24 15:00 63 20 174/83 96 09/03/24 12:52 58 L 20 173/78 93 L Intake and Output 09/03/24 09/04/24 09/04/24 22:59 06:59 14:59 Other: Voiding Method Toilet Toilet # Voids 2 # Bowel Movements 1 Weight 134.263 kg Results 09/04/24 04:38 09/04/24 04:38 Cardiac Enzymes 09/04/24 09/04/24 Range/Units 04:38 09:14 AST 20 (13-35) U/L Troponin I <0.012 (0.000-0.034) ng/mL Coagulation 09/03/24 Range/Units 10:45 PT 10.8 (10.0-12.5) sec APTT 22.7 (22.0-30.0) sec CBC 09/04/24 Range/Units 04:38 WBC 4.84 (4.50-10.00) X 10*3/uL RBC 4.57 (4.10-5.20) X 10*6/uL Hgb 11.0 L (12.0-15.0) g/dL Hct 36.0 L (37.2-46.3) % Plt Count 324 (140-440) X 10*3/uL Comprehensive Metabolic Panel 09/04/24 Range/Units 04:38 Sodium 144 (135-145) mmol/L Potassium 4.1 (3.5-5.5) mmol/L Chloride 106 (96-109) mmol/L Carbon Dioxide 25.0 (21.6-31.8) mmol/L BUN 11.8 (9.0-27.0) mg/dL Creatinine 1.2 (0.6-1.5) mg/dL Glucose 98 (70-110) mg/dL Calcium 9.5 (8.7-10.3) mg/dL AST 20 (13-35) U/L ALT 16 (8-44) U/L Alkaline Phosphatase 116 (41-126) U/L Total Protein 6.2 (6.2-8.2) g/dL Albumin 4.1 (3.8-4.9) g/dL Current Medications Generic Name Dose Route Start Last Admin Trade Name Freq PRN Reason Stop Dose Admin Apixaban 5 mg 09/03/24 21:00 09/04/24 09:02 Apixaban 5 Mg Tab PO 5 mg BID LAMIN Administration Protocol Atorvastatin Calcium 20 mg 09/03/24 21:00 09/03/24 21:03 Atorvastatin 20 Mg Tab PO 20 mg HS LAMIN Administration Fluoxetine HCl 40 mg 09/04/24 09:00 09/04/24 09:02 Fluoxetine Hcl 20 Mg Cap PO 40 mg DAILY LAMIN Administration Furosemide 40 mg 09/04/24 09:00 09/04/24 09:01 Furosemide 40 Mg Tab PO 40 mg DAILY LAMIN Administration Levothyroxine Sodium 125 mcg 09/04/24 07:30 09/04/24 05:54 Levothyroxine 125 Mcg Tab PO 125 mcg AC-BRKFST LAMIN Administration Lisinopril 40 mg 09/04/24 09:00 09/04/24 09:02 Lisinopril 20 Mg Tab PO 40 mg DAILY LAMIN Administration Naloxone HCl 0.2 mg 09/03/24 12:22 Naloxone 0.4 Mg/Ml 1 Ml Vial IV Q2M PRN Opioid Reversal Ondansetron HCl 4 mg 09/03/24 12:22 Ondansetron 4 Mg/2 Ml Vial IVP Q8HR PRN Nausea And Vomiting Sotalol HCl 80 mg 09/03/24 21:00 09/04/24 09:02 Sotalol 80 Mg Tab PO 80 mg BID LAMIN Administration Intake and Output 09/03/24 09/04/24 09/04/24 22:59 06:59 14:59 Other: Voiding Method Toilet Toilet # Voids 2 # Bowel Movements 1 Weight 134.263 kg 09/04/24 04:38 09/04/24 04:38
[2024-09-04 14:18] VITALS: BP 139/64; PULSE 60; TEMP 98.3
--- NOTE | 2024-09-09 09:21 | P.DS ---
Providers Date of admission: 09/03/24 12:23 Expected date of discharge: 09/04/24 Attending physician: Katerina Barrios Consults: 09/03/24 12:22 Consult Physician Routine Consulting Provider: [facility] Consult Reason/Comments: chf, exertional dyspnea. recent cardioversion Do you want consulting provider notified?: Yes Primary care physician: Ozzie Gunn Hospital Course: Final diagnosis Worsening shortness of breath secondary to acute CHF. Acute on chronic with systolic dysfunction EF 35 to 40% Paroxysmal atrial fibrillation. Currently in sinus rhythm. Recent history of cardioversion 2 weeks ago at [facility]. On anticoagulation with Eliquis Hypothyroidism Hypertension uncontrolled Anxiety Obesity with BMI 41.3 Microcytic anemia, iron deficiency GI prophylaxis DVT prophylaxis Full code Discharge disposition Patient is being discharged in a stable condition with guarded prognosis to home. Patient will follow-up with in the outpatient setting upon discharge. Patient is to continue with current medications as mentioned below and outpatient follow-up with cardiology as scheduled. Total time taken is greater than 35 minutes. Hospital course This is a 74-year-old female who was recently admitted with shortness of breath secondary to CHF exacerbation. EF noted to be 35 to 40% along with history of A-fib. Patient being followed by cardiology and recently underwent cardioversion 2 weeks ago at [facility] maintained on Eliquis. Patient has been transitioned to oral Lasix and has been cleared by cardiology and would like to go home. Amlodipine is being discontinued and recommend outpatient follow-up with primary care provider as well as cardiology. Please refer to cardiology consultation note for further HPI. Currently no reports of chest pain, shortness of breath, or palpitations. Patient is afebrile. No reports of nausea or vomiting and patient is tolerating diet. Patient will be discharged home today. Guarded prognosis. Physical exam: Gen: This is a 74-year-old female who is awake, alert and oriented x 3, well- developed, elderly appearing, morbidly obese HEENT: Head is atraumatic, normocephalic. Pupils equal, round. Sclerae is anicteric. NECK: Supple. No JVD. No lymphadenopathy. No thyromegaly. LUNGS: Diminished breath sounds bilaterally otherwise clear to auscultation. No wheezes or rhonchi. No intercostal retractions. HEART: S1, S2 are muffled ABDOMEN: Soft. Obese bowel sounds are present. No masses. No tenderness. EXTREMITIES: No pedal edema. No calf tenderness. NEUROLOGICAL: Patient is awake, alert and oriented x3. Cranial nerves 2 through 12 are grossly intact. Please refer to medication reconciliation sheet for a list of medications. The impression and plan of care has been dictated by Joie Burrell, Nurse Practitioner as directed. Dr. Denis MD I have performed a history and examination and MDM of this patient, discussed the same with the dictator, and agree with the dictator's assessment and plan as written ,documented as a scribe. Based on total visit time, I have performed more than 50% of the visit. Patient Condition at Discharge: Stable Plan - Discharge Summary New Discharge Prescriptions: Continue FLUoxetine HCL 40 mg PO DAILY Ergocalciferol [Vitamin D2 (1250 Mcg = 53786 Iu)] 1,250 mcg PO MO Atorvastatin [Lipitor] 20 mg PO HS Apixaban [Eliquis] 5 mg PO BID Levothyroxine Sodium [Synthroid] 125 mcg PO AC-BRKFST Discontinued amLODIPine BESYLATE/BENAZEPRIL [Lotrel 5-40 MG] 1 cap PO DAILY No Action Cyanocobalamin [Vitamin B-12] 1,000 mcg PO DAILY #30 tablet Furosemide [Lasix] 40 mg PO DAILY #30 tab lisinopriL [Zestril] 40 mg PO DAILY #30 tab Discharge Medication List FLUoxetine HCL 40 mg PO DAILY 01/19/15 [History] Apixaban [Eliquis] 5 mg PO BID 09/03/24 [History] Atorvastatin [Lipitor] 20 mg PO HS 09/03/24 [History] Ergocalciferol [Vitamin D2 (1250 Mcg = 24303 Iu)] 1,250 mcg PO MO 09/03/24 [History] Levothyroxine Sodium [Synthroid] 125 mcg PO AC-BRKFST 09/03/24 [History] Cyanocobalamin [Vitamin B-12] 1,000 mcg PO DAILY #30 tablet 09/08/24 [Rx] Furosemide [Lasix] 40 mg PO DAILY #30 tab 09/08/24 [Rx] lisinopriL [Zestril] 40 mg PO DAILY #30 tab 09/08/24 [Rx] Follow up Appointment(s)/Referral(s): Ozzie Gunn MD [Primary Care Provider] - 1-2 days Patient Instructions/Handouts: Dyspnea (DC) Activity/Diet/Wound Care/Special Instructions: Activity limited until follow-up Follow-up with primary care provider on discharge 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
== END 2024-09-04 16:36 | disposition home or self-care (01) ==
LOC: EC 09:59 → 6NMEDSUR 12:23 → 5NMEDONC 19:46 → 6NMEDSUR 20:48
PROVIDERS: ADMIT Internal Medicine; ATTEND Internal Medicine
DX: I11.0 Hypertensive heart disease with heart failure (principal); I50.23 Acute on chronic systolic (congestive) heart failure; D50.9 Iron deficiency anemia, unspecified; I48.0 Paroxysmal atrial fibrillation; F41.9 Anxiety disorder, unspecified; E03.9 Hypothyroidism, unspecified; E78.5 Hyperlipidemia, unspecified; G47.30 Sleep apnea, unspecified; E66.01 Morbid (severe) obesity due to excess calories; Z68.41 Body mass index [BMI] 40.0-44.9, adult; Z87.891 Personal history of nicotine dependence; Z79.01 Long term (current) use of anticoagulants; Z79.890 Hormone replacement therapy; Z79.899 Other long term (current) drug therapy; Z88.2 Allergy status to sulfonamides; Z88.5 Allergy status to narcotic agent
CPT/HCPCS: 96374; 99285; 36415; 94640; 93005; 93306; 83880; 80053 ×2; 83540; 83550; 83605; 83735; 84484; 85025 ×2; 85610; 85730; 81001; 87636; 71046; G0378 ×3; Q9957; J1938

== ENCOUNTER 2024-09-06 10:39 | Observation (INO) | payer MEDICARE ==
--- NOTE | 2024-09-06 11:04 | ED ---
General Adult HPI - General Chief complaint: Syncope Stated complaint: Fall-Head Injury Time Seen by Provider: 09/06/24 10:40 Source: patient, RN notes reviewed, old records reviewed Mode of arrival: ambulatory Limitations: no limitations - History of Present Illness Initial comments: This is a 74-year-old female who presents to the emergency department and is on blood thinners. Patient stated she felt lightheaded and then fell back and hit the back of her head. Patient denies any neck pain patient denies numbness weakness. Patient denies any other injury. Patient states she recently ran out of her lisinopril so she went back to start taking her Lotrel. Patient denies any headache she just has a sore spot on her scalp. Patient denies any chest pain or back pain. Patient [place] any other symptoms. - Related Data Home Medications Medication Instructions Recorded Confirmed FLUoxetine HCL 40 mg PO DAILY 01/19/15 09/03/24 Apixaban [Eliquis] 5 mg PO BID 09/03/24 09/03/24 Atorvastatin [Lipitor] 20 mg PO HS 09/03/24 09/03/24 Ergocalciferol [Vitamin D2 (1250 1,250 mcg PO MO 09/03/24 09/03/24 Mcg = 06055 Iu)] Levothyroxine Sodium [Synthroid] 125 mcg PO AC-BRKFST 09/03/24 09/03/24 Sotalol [Betapace] 80 mg PO BID 09/03/24 09/03/24 Previous Rx's Medication Instructions Recorded Furosemide [Lasix] 40 mg PO DAILY #30 tab 09/04/24 lisinopriL [Zestril] 40 mg PO DAILY #60 tab 09/04/24 Allergies Allergy/AdvReac Type Severity Reaction Status Date / Time sulfamethoxazole Allergy Rash/Hives Verified 09/06/24 11:00 [From Bactrim] trimethoprim [From Bactrim] Allergy Rash/Hives Verified 09/06/24 11:00 codeine AdvReac Nausea & Verified 09/06/24 11:00 Vomiting Review of Systems ROS Statement: Those systems with pertinent positive or pertinent negative responses have been documented in the HPI. ROS Other: All systems not noted in ROS Statement are negative. Past Medical History Past Medical History: Atrial Fibrillation, Hyperlipidemia, Hypertension, Osteoarthritis (OA), Sleep Apnea/CPAP/BIPAP, Thyroid Disorder History of Any Multi-Drug Resistant Organisms: None Reported Past Surgical History: Ablation, Bariatric Surgery, Cholecystectomy, Hernia Repair Additional Past Surgical History / Comment(s): kidney stone removal, ablation, bilateral cataract SX Past Anesthesia/Blood Transfusion Reactions: No Reported Reaction Past Psychological History: Anxiety Smoking Status: Former smoker Past Alcohol Use History: None Reported Past Drug Use History: None Reported - Past Family History Mother Family Medical History: COPD, Hypertension Father Family Medical History: Cancer Additional Family Medical History / Comment(s): lung and brain cancer General Exam - General Exam Comments Initial Comments: GENERAL: Patient is well-developed and well-nourished. Patient is nontoxic and well- hydrated and is in mild distress. Patient has a hematoma in the occipital region of the scalp on the right. ENT: Neck is soft and supple. No significant lymphadenopathy is noted. Oropharynx is clear. Moist mucous membranes. Neck has full range of motion without eliciting any pain. EYES: The sclera were anicteric and conjunctiva were pink and moist. Extraocular movements were intact and pupils were equal round and reactive to light. Eyelids were unremarkable. PULMONARY: Unlabored respirations. Good breath sounds bilaterally. No audible rales rhonchi or wheezing was noted. CARDIOVASCULAR: There is a regular rate and rhythm without any murmurs gallops or rubs. ABDOMEN: Soft and nontender with normal bowel sounds. SKIN: Skin is clear with no lesions or rashes and otherwise unremarkable. NEUROLOGIC: Patient is alert and oriented x3. Cranial nerves II through XII are grossly intact. Motor and sensory are also intact. Normal speech, volume and content. Symmetrical smile. MUSCULOSKELETAL: Normal extremities with adequate strength and full range of motion. LYMPHATICS: No significant lymphadenopathy is noted PSYCHIATRIC: Normal psychiatric evaluation. Limitations: no limitations Course Vital Signs 09/06/24 10:40 Temperature 97.8 F Pulse Rate 45 L Respiratory 18 Rate Blood Pressure 141/72 O2 Sat by Pulse 95 Oximetry Medical Decision Making - Medical Decision Making EKG is interpreted by myself. EKG shows sinus bradycardia 43 bpm SC interval is 206 QRS is 98 QT interval 506 QTc is 453. Patient's EKG shows no ST segment elevation however there is T wave inversions in leads V1, V2, V3. Was pt. sent in by a medical professional or institution (, PA, BUSINESS OPERATIONS DIRECTOR, urgent care, hospital, or intermediate...) When possible be specific @ -No Did you speak to anyone other than the patient for history (EMS, parent, family, police, friend...)? What history was obtained from this source @ -No Did you review nursing and triage notes (agree or disagree)? Why? @ -I reviewed and agree with nursing and triage notes Were old charts reviewed (outside hosp., previous admission, EMS record, old EKG, old radiological studies, urgent care reports/EKG's, intermediate records)? Report findings @ -No old charts were reviewed Differential Diagnosis? @ -Differential Syncope: Valvular disease, hypertrophic cardiomyopathy, pulmonary embolism, tamponade, tachycardia, bradycardia, NH, hypovolemia, hemorrhage, dissection, anemia, intracranial hemorrhage, seizure, hypoglycemia, carbon monoxide poisoning, this is not meant to be an all-inclusive list. EKG interpreted by me (3pts min.). @ -As above X-rays interpreted by me (1pt min.). @ -Chest x-ray shows no acute abnormality CT interpreted by me (1pt min.). @ -CT of the brain and C-spine showed no acute abnormality U/S interpreted by me (1pt. min.). @ -None done What testing was considered but not performed or refused? (CT, X-rays, U/S, labs)? Why? @ -None What meds were considered but not given or refused? Why? @ -None Did you discuss the management of the patient with other professionals (profession i.e. DrMiguel, PA, BUSINESS OPERATIONS DIRECTOR, lab, RT, psych nurse, social service agency director, galvanometer assembler, teacher, multisensor intelligence officer, case technician)? Give summary @ -I spoke with [facility] hospice they agreed to admit the patient admit the patient wrote admitting orders Was smoking cessation discussed for >3mins.? @ -No Was critical care preformed (if so, how long)? @ -No Were there social determinants of health that impacted care today? How? (Homelessness, low income, unemployed, alcoholism, drug addiction, transportation, low edu. Level, literacy, decrease access to med. care, residential, rehab)? @ -No Was there de-escalation of care discussed even if they declined (Discuss DNR or withdrawal of care, Hospice)? DNR status @ -No What co-morbidities impacted this encounter? (DM, HTN, Smoking, COPD, CAD, Cancer, CVA, ARF, Chemo, Hep., AIDS, mental health diagnosis, sleep apnea, morbid obesity)? @ -None Was patient admitted / discharged? Hospital course, mention meds given and route, prescriptions, significant lab abnormalities, going to OR and other pertinent info. @ -Patient continued to be bradycardic as low as 40 beats a minute in the emergency department. Patient had no more episodes of lightheadedness or syncope but she remained lying in bed. Patient CT scans were normal as well as a chest x-ray patient will be admitted with a cardiology consult. Patient is on Lotrel and sotalol for atrial fibrillation Undiagnosed new problem with uncertain prognosis? @ -No Drug Therapy requiring intensive monitoring for toxicity (Heparin, Nitro, Insulin, Cardizem)? @ -No Were any procedures done? @ -No Diagnosis/symptom? @ -Syncope Acute, or Chronic, or Acute on Chronic? @ -Acute Uncomplicated (without systemic symptoms) or Complicated (systemic symptoms)? @ -Complicated Side effects of treatment? @ -No Exacerbation, Progression, or Severe Exacerbation? @ -No Poses a threat to life or bodily function? How? (Chest pain, [place], NH, pneumonia, PE, COPD, DKA, ARF, appy, cholecystitis, CVA, Diverticulitis, Homicidal, Suicidal, threat to staff... and all critical care pts) @ -Yes this can lead to poor perfusion and endorgan dysfunction Diagnosis/symptom? @ -Bradycardia Acute, or Chronic, or Acute on Chronic? @ -Acute Uncomplicated (without systemic symptoms) or Complicated (systemic symptoms)? @ -Complicated Side effects of treatment? @ -None Exacerbation, Progression, or Severe Exacerbation] @ -No Poses a threat to life or bodily function? @ -Yes Diagnosis/symptom? @ -Scalp hematoma Acute, or Chronic, or Acute on Chronic? @ -Acute Uncomplicated (without systemic symptoms) or Complicated (systemic symptoms)? @ -Uncomplicated Side effects of treatment? @ -None Exacerbation, Progression, or Severe Exacerbation] @ -No Poses a threat to life or bodily function? @ -No Disposition Clinical Impression: Bradycardia, Syncope, Scalp hematoma Disposition: ADMITTED IP TO THIS HOSP Referrals: Ozzie Gunn MD [Primary Care Provider] - 1-2 days Time of Disposition: 11:49
--- NOTE | 2024-09-06 11:12 | CT ---
EXAMINATION TYPE: CT brain [place] wo con DATE OF EXAM: 09/06/2024 10:53 AM COMPARISON: 02/19/2023 CLINICAL INDICATION: Female, 74 years old with history of Trauma, trauma, pain Technique: Examination of the head was done in axial plane without intravenous contrast. Coronal and sagittal reconstructions performed. CT of the cervical spine was obtained in axial plane without intravenous injection of contrast mater ial. Coronal and sagittal reformatted images were obtained from the axial views for evaluation of f ractures, spinal alignment and canal. CT DLP: 1582.2 mGycm, Automated exposure control for dose reduction was used. FINDINGS: Head: There is no evidence of acute intracranial hemorrhage, acute ischemic changes, mass, mass-effect, or extra-axial fluid collection. There is no effacement of cerebral sulci or basal subarachnoid cister ns. There is no hydrocephalus. There is no midline shift. Mancilla-white matter distinction is preserv ed. Mild volume loss overlying the bilateral cerebral convexities. Partially empty sella. Mild right parietal scalp hematoma. Paranasal sinuses and mastoid air cells are well pneumatized. Orb its and globes are intact. No calvarial fracture. Cervical spine: No craniocervical junction abnormality, predental space widening, or prevertebral soft tissue swellin g. Degenerative change of the C1 dens articulation. Moderate disc that simply degenerative change as well as facet and uncovertebral joint arthropathy mi d to lower cervical spine. By CT, no evident canal compromise. No acute fracture is seen. Alignment is maintained. At C3-C4, changes result in moderate right neuroforaminal stenosis. At C4-C5, changes result in mild left neural foraminal stenosis. At C5-C6, change results in [id number] left neural foraminal stenosis. At C6-C7, there is [id number] bilateral neural foraminal stenosis. At C7-T1, mild right neural foraminal stenosis. Sagittal and coronal reformatted images confirm above findings. COMBINED IMPRESSION: 1. Mild right parietal scalp hematoma. No acute intracranial abnormality seen. 2. No acute fracture or malalignment of the cervical spine. Moderate spondylotic change as outlined a jennifer. [facility], Workstation: [email or web address] PartnersSHIRLEY, 09/06/2024 11:10 AM
--- NOTE | 2024-09-06 11:46 | XR ---
EXAMINATION TYPE: XR chest 2V DATE OF EXAM: 09/06/2024 11:42 AM COMPARISON: Chest radiographs from 09/03/2024. CLINICAL INDICATION: Female, 74 years old with history of Chest Pain; TECHNIQUE: XR chest 2V Frontal and lateral views of the chest. FINDINGS: Lungs/Pleura: There is no evidence of pleural effusion, focal consolidation, or pneumothorax. Pulmonary vascularity: Unremarkable. Heart/mediastinum: Cardiomediastinal silhouette is unremarkable. Musculoskeletal: No acute osseous pathology. Other findings: None IMPRESSION: No acute cardiopulmonary disease/process. [facility], , 09/06/2024 11:43 AM
[2024-09-06 11:53] LABS: Basophils # (A) 0.04 10*3/uL (0.00-0.10); Basophils % (A) 0.8 %; Eosinophils # (A) 0.14 10*3/uL (0.04-0.35); Eosinophils % (A) 2.7 %; HCT 34.9 % (37.2-46.3); HGB 11.2 g/dL (12.0-15.0); Lymphocytes # (A) 0.73 10*3/uL (0.90-5.00); Lymphocytes % (A) 14.1 %; MCH 25.3 pg (27.0-32.0); MCHC 32.1 g/dL (32.0-37.0); MCV 78.8 fL (80.0-97.0); Mean Platelet Volume 9.9 fL (9.5-12.2); Monocytes # (A) 0.61 10*3/uL (0.20-1.00); Monocytes % (A) 11.8 %; Neutrophils # (A) 3.64 10*3/uL (1.80-7.70); Neutrophils % (A) 70.2 %; Partial Thromboplastin Time 23.5 sec (22.0-30.0); Platelet Count 333 10*3/uL (140-440); RBC 4.43 10*6/uL (4.10-5.20); RDW 17.2 % (11.5-14.5); WBC 5.18 10*3/uL (4.50-10.00)
[2024-09-06 11:56] LABS: ALT 17 U/L (4-34); AST 29 U/L (14-36); African American GFR (CKD) 44 (>60 ml/min/1.73 sqM); Albumin 4.3 g/dL (3.5-5.0); Alkaline Phosphatase 99 U/L (38-126); Anion Gap 13 mmol/L; Blood Urea Nitrogen 24 mg/dL (7-17); Calcium 9.7 mg/dL (8.4-10.2); Carbon Dioxide 23 mmol/L (22-30); Chloride 105 mmol/L (98-107); Glucose 101 mg/dL (74-99); Magnesium 2.2 mg/dL (1.6-2.3); Non-African American GFR(CKD) 38 (>60 ml/min/1.73 sqM); Potassium 3.6 mmol/L (3.5-5.1); Sodium 141 mmol/L (137-145); Total Bilirubin 0.8 mg/dL (0.2-1.3); Total Protein 6.7 g/dL (6.3-8.2)
[2024-09-06] MEDS: SODIUM CHLORIDE 0.9% 1,000 ML IV ONE (12:12)
[2024-09-06] MEDS: APIXABAN 5 MG TAB PO SCH (19:54)
[2024-09-06] MEDS: ATORVASTATIN 20 MG TAB PO SCH (19:54)
--- NOTE | 2024-09-06 23:51 | P.HPIM ---
History of Present Illness H&P Date: 09/06/24 Chief Complaint: Syncope Patient is a 74-year-old female with a known history of atrial fibrillation and recent cardioversion, hypertension, osteoarthritis, obstructive sleep apnea and hypothyroidism. Patient was recently admitted to the hospital from 08/04/2024 to 08/05/2024 due to complaints of shortness of breath and found to have acute CHF with ejection fraction 35% as per echocardiogram thought to be due to recent cardioversion. She was discharged home with lisinopril and oral Lasix and Norvasc was discontinued. 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 Patient was brought to ER by EMS status post syncopal episode. Patient states that she went to work today. She came inside after walking about 10 minutes outside and suddenly felt dizzy and fell on her right side hitting her head.. Denied any palpitations. Denied any chest pain. She regained consciousness immediately. EMS was called and patient was brought to ER. During recent admission Norvasc was discontinued and patient was started on lisinopril and Lasix. 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 She is also on sotalol. Currently denies any headache. No complaints of back pain. No chest pain or shortness of breath. Denies any other injuries. On admission blood pressure 141/72 and heart rate 45 respiration 18 and pulse ox 91% on room air. Chest x-ray showed no acute cardiopulmonary process. CT head and cervical spine showed mild right parietal scalp hematoma. No acute intracranial abnormality. No acute fracture or malalignment of the cervical spine. EKG showed sinus bradycardia with heart rate 43 Laboratory data showed WBC 5.18, hemoglobin 11.2 and MCV 78.8 BUN 24 and creatinine 1.37 Review of Systems Constitutional: Patient denies any fever or chills . No generalized weakness or weight loss. Abdomen: Patient denied nausea vomiting and diarrhea and abdominal pain. Cardiovascular: Patient denies any chest pain or short of breath no palpitations. Respiratory: patient denied any cough or sputum production. No shortness of breath Neurologic: Patient denied any numbness or tingling. no headache. Musculoskeletal: Patient denies any complaints of joint swelling or deformity. Skin: Negative Psychiatric: Negative Endocrine: No heat or cold intolerance. No recent weight gain. Genitourinary: No dysuria or hematuria. All other 14 point ROS negative except the above Past Medical History Past Medical History: Atrial Fibrillation, Hyperlipidemia, Hypertension, Osteoarthritis (OA), Sleep Apnea/CPAP/BIPAP, Thyroid Disorder History of Any Multi-Drug Resistant Organisms: None Reported Past Surgical History: Ablation, Bariatric Surgery, Cholecystectomy, Hernia Repair Additional Past Surgical History / Comment(s): kidney stone removal, ablation, bilateral cataract SX Past Anesthesia/Blood Transfusion Reactions: No Reported Reaction Past Psychological History: Anxiety Smoking Status: Former smoker Past Alcohol Use History: None Reported Past Drug Use History: None Reported - Past Family History Mother Family Medical History: COPD, Hypertension Father Family Medical History: Cancer Additional Family Medical History / Comment(s): lung and brain cancer Medications and Allergies Home Medications Medication Instructions Recorded Confirmed Type FLUoxetine HCL 40 mg PO DAILY 01/19/15 09/06/24 History Apixaban [Eliquis] 5 mg PO BID 09/03/24 09/06/24 History Atorvastatin [Lipitor] 20 mg PO HS 09/03/24 09/06/24 History Ergocalciferol [Vitamin D2 (1250 1,250 mcg PO MO 09/03/24 09/06/24 History Mcg = 27155 Iu)] Levothyroxine Sodium [Synthroid] 125 mcg PO AC-BRKFST 09/03/24 09/06/24 History Sotalol [Betapace] 80 mg PO BID 09/03/24 09/06/24 History amLODIPine BESYLATE/BENAZEPRIL 1 cap PO DAILY 09/06/24 09/06/24 History [Lotrel 5-40 MG] Allergies Allergy/AdvReac Type Severity Reaction Status Date / Time sulfamethoxazole Allergy Rash/Hives Verified 09/06/24 12:24 [From Bactrim] trimethoprim [From Bactrim] Allergy Rash/Hives Verified 09/06/24 12:24 codeine AdvReac Nausea & Verified 09/06/24 12:24 Vomiting Physical Exam Vitals: Vital Signs Temp Pulse Pulse Resp BP BP Pulse Ox 09/06/24 17:22 97.8 F 49 L 15 130/72 97 09/06/24 16:58 98.0 F 49 L 17 129/68 97 09/06/24 16:00 98.2 F 44 L 16 112/65 96 09/06/24 14:00 49 L 18 130/67 96 09/06/24 13:00 47 L 17 128/65 95 09/06/24 12:33 46 L 18 98 09/06/24 12:00 45 L 20 129/66 98 09/06/24 10:40 97.8 F 45 L 18 141/72 95 Intake and Output 09/06/24 09/06/24 09/06/24 06:59 14:59 22:59 Other: # Voids 1 Weight 134.263 kg 134.26 kg PHYSICAL EXAMINATION: Patient is lying in the bed comfortably, no acute distress, awake alert and oriented.. HEENT: Normocephalic. Neck is supple. Pupils reactive. Nostrils clear. Oral cavity is moist. Neck reveals no JVD, carotid bruits, or thyromegaly. CHEST EXAMINATION: Trachea is central. Symmetrical expansion. Lung lopez clear to auscultation and percussion. CARDIAC: Normal S1, S2 with no gallops. No murmurs ABDOMEN: Soft. Bowel sounds normal. No organomegaly. No abdominal bruits. Extremities: reveal no edema. No clubbing or cyanosis Neurologically awake, alert, oriented x3 with well-coordinated movements. No focal deficits noted Skin: No rash or skin lesions. Psychiatric: Coperative. Nonsuicidal Musculoskeletal: No joint swelling or deformity. Normal range of motion. Results CBC & Chem 7: 09/06/24 11:28 09/06/24 11:28 Labs: Abnormal Lab Results - Last 24 Hours (Table) 09/06/24 09/06/24 Range/Units 11:28 11:28 Hgb 11.2 L (12.0-15.0) g/dL Hct 34.9 L (37.2-46.3) % MCV 78.8 L (80.0-97.0) fL MCH 25.3 L (27.0-32.0) pg Lymphocytes # 0.73 L (0.90-5.00) 10*3/uL BUN 24 H (7-17) mg/dL Creatinine 1.37 H (0.52-1.04) mg/dL Glucose 101 H (74-99) mg/dL Thrombosis Risk Factor Assmnt - DVT/VTE Prophylaxis DVT/VTE Prophylaxis: Pharmacologic Prophylaxis ordered - Choose All That Apply Each Factor Represents 1 point: Obesity (BMI >25) Each Risk Factor Represents 2 Points: Age 61-74 years Other congenital or acquired thrombophilia - If yes, enter type in comment: No Thrombosis Risk Factor Assessment Total Risk Factor Score: 3 Thrombosis Risk Factor Assessment Level: Moderate Risk Assessment and Plan Assessment: Acute syncopal episode likely orthostatic Acute kidney injury due to vasomotor nephropathy with creatinine level 1.37 baseline 1.0 Paroxysmal atrial fibrillation with recent history of cardioversion at [facility]. Currently maintaining sinus rhythm Cardiomyopathy ejection fraction 35% as per recent echocardiogram on 09/04/2024. Thought to be due to prior cardioversion Hypertension Osteoarthritis Obstructive sleep apnea Hypothyroidism Anxiety Prior history of smoking Plan: Patient will be continued on telemonitoring. Continue gentle IV hydration and monitor renal function. Orthostatic vitals were ordered. Norvasc will be on hold. Continue with lisinopril 40 mg daily and monitor blood pressure. Sotylize on hold due to sinus bradycardia. Continue with Eliquis. Cardiology was consulted for evaluation. Follow-up closely. Time with Patient: Greater than 30
[2024-09-07] MEDS: LEVOTHYROXINE 125 MCG TAB PO SCH (06:08)
--- NOTE | 2024-09-07 08:34 | P.CRDCN ---
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 She was discharged from the hospital recently after she is admitted with heart failure and underwent an echo showed cardiomyopathy with EF around 30 to 35%. She was discharged in stable medical condition. She is supposed to be taking oral diuretics but she did not start taking the medications. She was in her usual state of health till yesterday when she was at work and she started experiencing dizziness and lightheadedness and subsequently she did have an episode of syncope witnessed by her coworkers. No symptoms of chest pain or chest discomfort or shortness of breath. She was noted to be bradycardic. She was on sotalol but no other AV mao lise agents. Sotalol was stopped. Since then her heart rate has been in the 50s and 60s. QT interval is within normal limits and below 500 ms. Further workup was performed and came to be unremarkable. The physical examination is remarkable for regular rhythm with a soft systolic murmur and clear breathing sounds bilaterally and no edema was noted in the lower extremities Assessment Paroxysmal atrial fibrillation currently the patient is maintaining normal sinus mechanism History of sinus bradycardia Recently diagnosis of cardiomyopathy Multiple comorbid conditions Plan Agree about holding sotalol Monitor the patient for additional 24 hours Obtain TSH Continue oral anticoagulation Follow-up with the patient Past Medical History Past Medical History: Atrial Fibrillation, Hyperlipidemia, Hypertension, Osteoarthritis (OA), Sleep Apnea/CPAP/BIPAP, Thyroid Disorder History of Any Multi-Drug Resistant Organisms: None Reported Past Surgical History: Ablation, Bariatric Surgery, Cholecystectomy, Hernia Repair Additional Past Surgical History / Comment(s): kidney stone removal, ablation, bilateral cataract SX Past Anesthesia/Blood Transfusion Reactions: No Reported Reaction Past Psychological History: Anxiety Smoking Status: Former smoker Past Alcohol Use History: None Reported Past Drug Use History: None Reported - Past Family History Mother Family Medical History: COPD, Hypertension Father Family Medical History: Cancer Additional Family Medical History / Comment(s): lung and brain cancer Medications and Allergies Home Medications Medication Instructions Recorded Confirmed Type FLUoxetine HCL 40 mg PO DAILY 01/19/15 09/06/24 History Apixaban [Eliquis] 5 mg PO BID 09/03/24 09/06/24 History Atorvastatin [Lipitor] 20 mg PO HS 09/03/24 09/06/24 History Ergocalciferol [Vitamin D2 (1250 1,250 mcg PO MO 09/03/24 09/06/24 History Mcg = 54239 Iu)] Levothyroxine Sodium [Synthroid] 125 mcg PO AC-BRKFST 09/03/24 09/06/24 History Sotalol [Betapace] 80 mg PO BID 09/03/24 09/06/24 History amLODIPine BESYLATE/BENAZEPRIL 1 cap PO DAILY 09/06/24 09/06/24 History [Lotrel 5-40 MG] Allergies Allergy/AdvReac Type Severity Reaction Status Date / Time sulfamethoxazole Allergy Rash/Hives Verified 09/06/24 12:24 [From Bactrim] trimethoprim [From Bactrim] Allergy Rash/Hives Verified 09/06/24 12:24 codeine AdvReac Nausea & Verified 09/06/24 12:24 Vomiting Physical Exam Vitals: Vital Signs Temp Pulse Pulse Resp BP BP Pulse Ox 09/07/24 04:00 97.4 F L 53 L 18 143/63 94 L 09/06/24 23:29 97.8 F 58 L 18 122/72 93 L 09/06/24 20:00 97.8 F 53 L 18 127/72 09/06/24 17:22 97.8 F 49 L 15 130/72 97 09/06/24 16:58 98.0 F 49 L 17 129/68 97 09/06/24 16:00 98.2 F 44 L 16 112/65 96 09/06/24 14:00 49 L 18 130/67 96 09/06/24 13:00 47 L 17 128/65 95 09/06/24 12:33 46 L 18 98 09/06/24 12:00 45 L 20 129/66 98 09/06/24 10:40 97.8 F 45 L 18 141/72 95 Intake and Output 09/06/24 09/07/24 09/07/24 22:59 06:59 14:59 Intake Total 10 10 Balance 10 10 Intake: IV 10 10 Invasive Line 1 10 10 Other: Voiding Method Toilet Toilet # Voids 1 1 Weight 134.26 kg 136 kg Results 09/06/24 11:28 09/06/24 11:28 Cardiac Enzymes 09/06/24 09/06/24 Range/Units 11:28 11:28 AST 29 (14-36) U/L Troponin I <0.012 (0.000-0.034) ng/mL Coagulation 09/06/24 Range/Units 11:28 PT 11.0 (10.0-12.5) sec APTT 23.5 (22.0-30.0) sec CBC 09/06/24 Range/Units 11:28 WBC 5.18 (4.50-10.00) 10*3/uL RBC 4.43 (4.10-5.20) 10*6/uL Hgb 11.2 L (12.0-15.0) g/dL Hct 34.9 L (37.2-46.3) % Plt Count 333 (140-440) 10*3/uL Comprehensive Metabolic Panel 09/06/24 Range/Units 11:28 Sodium 141 (137-145) mmol/L Potassium 3.6 (3.5-5.1) mmol/L Chloride 105 (98-107) mmol/L Carbon Dioxide 23 (22-30) mmol/L BUN 24 H (7-17) mg/dL Creatinine 1.37 H (0.52-1.04) mg/dL Glucose 101 H (74-99) mg/dL Calcium 9.7 (8.4-10.2) mg/dL AST 29 (14-36) U/L ALT 17 (4-34) U/L Alkaline Phosphatase 99 (38-126) U/L Total Protein 6.7 (6.3-8.2) g/dL Albumin 4.3 (3.5-5.0) g/dL Current Medications Generic Name Dose Route Start Last Admin Trade Name Freq PRN Reason Stop Dose Admin Apixaban 5 mg 09/06/24 21:00 09/06/24 19:54 Apixaban 5 Mg Tab PO 5 mg BID LAMIN Administration Protocol Atorvastatin Calcium 20 mg 09/06/24 21:00 09/06/24 19:54 Atorvastatin 20 Mg Tab PO 20 mg HS LAMIN Administration Ergocalciferol 1,250 mcg 09/09/24 09:00 Ergocalciferol 1,250 Mcg (50,000 Iu) Capsule PO MO LAMIN Levothyroxine Sodium 125 mcg 09/07/24 07:30 09/07/24 06:08 Levothyroxine 125 Mcg Tab PO 125 mcg AC-BRKFST LAMIN Administration Lisinopril 40 mg 09/07/24 09:00 Lisinopril 20 Mg Tab PO DAILY LAMIN Intake and Output 09/06/24 09/07/24 09/07/24 22:59 06:59 14:59 Intake Total 10 10 Balance 10 10 Intake: IV 10 10 Invasive Line 1 10 10 Other: Voiding Method Toilet Toilet # Voids 1 1 Weight 134.26 kg 136 kg 09/06/24 11:28 09/06/24 11:28
[2024-09-07] MEDS ORDERED: amLODIPine 5 MG TAB PO SCH (09:00)
[2024-09-07] MEDS: FUROSEMIDE 40 MG TAB PO SCH (09:04)
[2024-09-07 09:05] LABS: African American GFR (CKD) 57 (>60 ml/min/1.73 sqM); Anion Gap 8 mmol/L; Blood Urea Nitrogen 19 mg/dL (7-17); Calcium 9.3 mg/dL (8.4-10.2); Carbon Dioxide 24 mmol/L (22-30); Chloride 109 mmol/L (98-107); Glucose 92 mg/dL (74-99); Non-African American GFR(CKD) 49 (>60 ml/min/1.73 sqM); Sodium 141 mmol/L (137-145)
[2024-09-07] MEDS: lisinopriL 20 MG TAB PO SCH (09:09)
--- NOTE | 2024-09-07 21:25 | P.PN ---
Subjective Progress Note Date: 09/07/24 Patient is a 74-year-old female with a known history of atrial fibrillation and recent cardioversion, hypertension, osteoarthritis, obstructive sleep apnea and hypothyroidism. Patient was recently admitted to the hospital from 08/04/2024 to 08/05/2024 due to complaints of shortness of breath and found to have acute CHF with ejection fraction 35% as per echocardiogram thought to be due to recent cardioversion. She was discharged home with lisinopril and oral Lasix and Norvasc was discontinued. 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 Patient was brought to ER by EMS status post syncopal episode. Patient states that she went to work today. She came inside after walking about 10 minutes outside and suddenly felt dizzy and fell on her right side hitting her head.. Denied any palpitations. Denied any chest pain. She regained consciousness immediately. EMS was called and patient was brought to ER. During recent admission Norvasc was discontinued and patient was started on lisinopril and Lasix. She could not curing pickling packer prescriptions and started using her previous medications Norvasc and Lotrel. She is also on sotalol. Currently denies any headache. No complaints of back pain. No chest pain or shortness of breath. Denies any other injuries. On admission blood pressure 141/72 and heart rate 45 respiration 18 and pulse ox 91% on room air. Chest x-ray showed no acute cardiopulmonary process. CT head and cervical spine showed mild right parietal scalp hematoma. No acute intracranial abnormality. No acute fracture or malalignment of the cervical spine. EKG showed sinus bradycardia with heart rate 43 Laboratory data showed WBC 5.18, hemoglobin 11.2 and MCV 78.8 BUN 24 and creatinine 1.37 09/07/2024 Patient is resting in the bed. Awake alert and oriented. No complaints of ch est pain or shortness of air. No headache or dizziness or lightheadedness. Able to walk to the bathroom. Continued on lisinopril 40 mg daily and also Lasix 40 mg daily. Norvasc and sotalol is on hold. Heart rate 54 this morning. Laboratory data showed sodium 141 potassium 4.0 chloride 109 bicarb is 24 BUN 19 and creatinine 1.10. TSH 2.11 and vitamin B12 263. Cardiology is on board. Current medications reviewed. Objective - Vital Signs Vital signs: Vital Signs Temp 98 F 09/07/24 19:39 Pulse 54 L 09/07/24 19:39 Resp 16 09/07/24 19:39 BP 149/72 09/07/24 19:39 Pulse Ox 92 L 09/07/24 19:39 FiO2 Intake & Output 09/07/24 09/07/24 09/08/24 06:59 18:59 06:59 Intake Total 20 20 Balance 20 20 Weight 136 kg Intake: IV 20 20 Invasive Line 1 20 10 Invasive Line 2 10 Other: Voiding Method Toilet Toilet Toilet # Voids 1 1 - Exam PHYSICAL EXAMINATION: Patient is lying in the bed comfortably, no acute distress, awake alert and oriented.. HEENT: Normocephalic. Neck is supple. Pupils reactive. Nostrils clear. Oral cavity is moist. Neck reveals no JVD, carotid bruits, or thyromegaly. CHEST EXAMINATION: Trachea is central. Symmetrical expansion. Lung lopez clear to auscultation and percussion. CARDIAC: Normal S1, S2 with no gallops. No murmurs ABDOMEN: Soft. Bowel sounds normal. No organomegaly. No abdominal bruits. Extremities: reveal no edema. No clubbing or cyanosis Neurologically awake, alert, oriented x3 with well-coordinated movements. No focal deficits noted Skin: No rash or skin lesions. Psychiatric: Coperative. Nonsuicidal Musculoskeletal: No joint swelling or deformity. Normal range of motion. - Labs CBC & Chem 7: 09/06/24 11:28 09/07/24 07:22 Labs: Abnormal Lab Results - Last 24 Hours (Table) 09/07/24 Range/Units 07:22 Chloride 109 H (98-107) mmol/L BUN 19 H (7-17) mg/dL Creatinine 1.11 H (0.52-1.04) mg/dL Assessment and Plan Assessment: Acute syncopal episode likely orthostatic Acute kidney injury due to vasomotor nephropathy with creatinine level 1.37 baseline 1.0 Paroxysmal atrial fibrillation with recent history of cardioversion at [facility]. Currently maintaining sinus rhythm Cardiomyopathy ejection fraction 35% as per recent echocardiogram on 09/04/2024. Thought to be due to prior cardioversion Hypertension Osteoarthritis Obstructive sleep apnea Hypothyroidism Anxiety Low normal vitamin B12 level Prior history of smoking Plan: Patient will be continued on telemonitoring. Patient is tolerating oral diet. Renal function is improving. Orthostatic vitals were ordered. Norvasc will be on hold. Continue with lisinopril 40 mg daily and Lasix 40 mg daily and monitor blood pressure. Sotylize on hold due to sinus bradycardia. Continue with Eliquis. Cardiology is on board. Continue to monitor 24 hours. Follow-up closely. Time with Patient: Greater than 30
[2024-09-08 07:22] LABS: Basophils # (A) 0.04 10*3/uL (0.00-0.10); Eosinophils % (A) 2.5 %; HCT 36.3 % (37.2-46.3); HGB 11.2 g/dL (12.0-15.0); Lymphocytes # (A) 0.61 10*3/uL (0.90-5.00); Lymphocytes % (A) 15.1 %; MCH 24.9 pg (27.0-32.0); MCHC 30.9 g/dL (32.0-37.0); MCV 80.7 fL (80.0-97.0); Mean Platelet Volume 9.9 fL (9.5-12.2); Monocytes # (A) 0.36 10*3/uL (0.20-1.00); Monocytes % (A) 8.9 %; Neutrophils # (A) 2.92 10*3/uL (1.80-7.70); Neutrophils % (A) 72.3 %; Platelet Count 281 10*3/uL (140-440); RDW 17.2 % (11.5-14.5); WBC 4.04 10*3/uL (4.50-10.00)
[2024-09-08 07:39] LABS: African American GFR (CKD) 59 (>60 ml/min/1.73 sqM); Anion Gap 8 mmol/L; Blood Urea Nitrogen 17 mg/dL (7-17); Calcium 9.3 mg/dL (8.4-10.2); Carbon Dioxide 23 mmol/L (22-30); Chloride 109 mmol/L (98-107); Glucose 100 mg/dL (74-99); Non-African American GFR(CKD) 52 (>60 ml/min/1.73 sqM); Potassium 3.7 mmol/L (3.5-5.1); Sodium 140 mmol/L (137-145)
[2024-09-08] MEDS: CYANOCOBALAMIN 1,000 MCG/ML 1 ML VIAL IM SCH (07:58)
[2024-09-08] MEDS: CYANOCOBALAMIN 500 MCG TAB PO SCH (07:59)
--- NOTE | 2024-09-08 09:12 | P.PN ---
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 She was discharged from the hospital recently after she is admitted with heart failure and underwent an echo showed cardiomyopathy with EF around 30 to 35%. She was discharged in stable medical condition. She is supposed to be taking oral diuretics but she did not start taking the medications. She was in her usual state of health till yesterday when she was at work and she started experiencing dizziness and lightheadedness and subsequently she did have an episode of syncope witnessed by her coworkers. No symptoms of chest pain or chest discomfort or shortness of breath. She was noted to be bradycardic. She was on sotalol but no other AV mao lise agents. Sotalol was stopped. Since then her heart rate has been in the 50s and 60s. QT interval is within normal limits and below 500 ms. Further workup was performed and came to be unremarkable. The physical examination is remarkable for regular rhythm with a soft systolic murmur and clear breathing sounds bilaterally and no edema was noted in the lower extremities September 08, 2024 The patient was seen and evaluated this morning. Overall she seems to be stable. She continues to be bradycardic but heart rate in the 50s. No significant sinus pause or sinus arrest after sotalol was stopped. She is on oral anticoagulation which she would like to be discharged home. She was adv ised to call her primary hydraulic bull riveter operator to address the issue of alternative to sotalol. Physical examination is remarkable for regular rhythm with clear breathing sounds bilaterally and soft systolic murmur at the right upper sternal border and no edema was noted in the lower extremities Assessment Paroxysmal atrial fibrillation currently the patient is maintaining normal sinus mechanism History of sinus bradycardia Recently diagnosis of cardiomyopathy Multiple comorbid conditions Plan Continue the current medical regimen TSH was checked and came to be unremarkable Continue oral anticoagulation Follow-up with her primary hydraulic bull riveter operator Objective - Vital Signs Vital signs: Vital Signs Temp 98.9 F 09/08/24 07:55 Pulse 52 L 09/08/24 07:55 Resp 16 09/08/24 07:55 BP 126/71 09/08/24 07:55 Pulse Ox 98 09/08/24 07:55 FiO2 Intake & Output 09/07/24 09/08/24 09/08/24 18:59 06:59 18:59 Intake Total 20 10 Balance 20 10 Weight 135.851 kg Intake: IV 20 10 Invasive Line 1 10 Invasive Line 2 10 10 Other: Voiding Method Toilet Toilet Toilet # Voids 1 - Labs CBC & Chem 7: 09/08/24 06:58 09/08/24 06:58 Labs: Abnormal Lab Results - Last 24 Hours (Table) 09/08/24 09/08/24 Range/Units 06:58 06:58 WBC 4.04 L (4.50-10.00) 10*3/uL Hgb 11.2 L (12.0-15.0) g/dL Hct 36.3 L (37.2-46.3) % MCH 24.9 L (27.0-32.0) pg MCHC 30.9 L (32.0-37.0) g/dL Lymphocytes # 0.61 L (0.90-5.00) 10*3/uL Chloride 109 H (98-107) mmol/L Creatinine 1.07 H (0.52-1.04) mg/dL Glucose 100 H (74-99) mg/dL
[2024-09-08] MEDS: FLUoxetine HCL 20 MG CAP PO SCH (09:42)
[2024-09-08 12:03] VITALS: BP 116/63; PULSE 59; RESP 18; TEMP 98.3
[2024-09-09] MEDS ORDERED: ERGOCALCIFEROL 1,250 MCG (50,000 IU) CAPSULE PO SCH (09:00)
== END 2024-09-08 13:32 | disposition home or self-care (01) ==
LOC: EC 10:39 → 3SCARD 11:59
PROVIDERS: ADMIT Internal Medicine; ATTEND Internal Medicine
DX: R55 Syncope and collapse (principal); I48.0 Paroxysmal atrial fibrillation; S00.03XA Contusion of scalp, initial encounter; W19.XXXA Unspecified fall, initial encounter; N17.0 Acute kidney failure with tubular necrosis; I42.9 Cardiomyopathy, unspecified; I11.0 Hypertensive heart disease with heart failure; I50.9 Heart failure, unspecified; E03.9 Hypothyroidism, unspecified; E78.5 Hyperlipidemia, unspecified; F41.9 Anxiety disorder, unspecified; G47.33 Obstructive sleep apnea (adult) (pediatric); M19.90 Unspecified osteoarthritis, unspecified site; Z79.01 Long term (current) use of anticoagulants; Z79.890 Hormone replacement therapy; Z79.899 Other long term (current) drug therapy; Z87.891 Personal history of nicotine dependence
CPT/HCPCS: 96372; 99285; 36415; 93005; 80053; 80048 ×2; 82607; 83735; 84443; 84484; 85025 ×2; 85610; 85730; 71046; 72125; 70450; G0378 ×3; J3420